=== PATIENT | female | born 1975 | race Caucasian/White ===

== ENCOUNTER 2018-11-27 06:30 | Inpatient (IN) ==
[2018-11-19 13:05] LABS: Appearance,Urine HAZY; Bacteria,Urine MOD /hpf (0); Bilirubin,Urine NEG (NEG); Color,Urine YELLOW; Glucose,Urine (UA) NEGATIVE (NEG); Leukocyte Esterase,Urine NEG /uL (NEG); Mucus,Urine FEW /hpf (0); Protein,Urine NEG (NEG); Specific Gravity,Urine 1.011 (1.000-1.035); Urine Blood NEG mg/dL (<0.03); Urine RBC 0 /hpf (0-1); Urine Squamous Epithelial Cell 4 /hpf (0-4); Urine WBC 8 /hpf (0-4); Urobilinogen,Urine NEG (NEG)
[2018-11-19 14:08] LABS: Blood Urea Nitrogen 14 mg/dl (6-20)
[2018-11-19 14:23] LABS: Basophils # (Auto) 0.1 K/mcL (0.0-0.3); Basophils % (Auto) 0.9 % (0.0-2.0); Eosinophils # (Auto) 0.1 K/mcL (0.0-0.7); Granulocytes % (Auto) 51.4 % (38.0-78.0); Lymphocytes # (Auto) 2.1 K/mcL (1.5-4.8); Lymphocytes % (Auto) 34.5 % (15.5-49.0); Mean Cell Volume 96.6 fL (80.0-100.0); Mean Corpuscular HGB Conc 33.2 g/dL (31.0-36.0); Monocytes # (Auto) 0.7 K/mcL (0.1-0.9); Monocytes % (Auto) 12.2 % (1.0-12.0); Platelet Count 329 K/mcL (140-440); RBC 4.06 M/mcL (4.00-5.20); Red Cell Distribution Width 13.4 % (11.5-14.5)
[2018-11-19 14:31] LABS: Hemoglobin A1C 5.5 % HGB (4.0-6.0)
[~2018-11-27 06:30] MED LIST: 0.9 % SODIUM CHLORIDE 9 ML, KETOROLAC 30 MG, ROPIVACAINE HCL/PF 49.5 ML, EPINEPHrine 0.... IJ SCH; CELECOXIB 200 MG CAPSULE PO SCH; PREGABALIN 75 MG CAPSULE PO SCH
[2018-11-27] MEDS ORDERED: ceFAZolin 2 GM in DEXTROSE 5% IN WATER 50 ML IV SCH (07:00)
[2018-11-27 08:14] LABS: Appearance,Urine CLEAR; Bilirubin,Urine NEG (NEG); Color,Urine STRAW; Glucose,Urine (UA) NEGATIVE (NEG); Leukocyte Esterase,Urine NEG /uL (NEG); Protein,Urine NEG (NEG); Specific Gravity,Urine 1.014 (1.000-1.035); Urine Blood NEG mg/dL (<0.03); Urobilinogen,Urine NEG (NEG)
[2018-11-27] MEDS ORDERED: GLYCOPYRROLATE 0.2 MG/ML VIAL IV ONE (10:00)
[2018-11-27] MEDS ORDERED: TRANEXAMIC ACID 1,000 MG/10 ML VIAL IV ONE (10:00)
[2018-11-27] MEDS ORDERED: MIDAZOLAM 5 MG/5 ML VIAL IV ONE (10:00)
[2018-11-27] MEDS ORDERED: ROPIVACAINE HCL/PF 30 ML VIAL IJ ONE (10:00)
[2018-11-27] MEDS ORDERED: ONDANSETRON 4 MG/2 ML VIAL IV ONE (10:00)
[2018-11-27] MEDS ORDERED: KETAMINE 100 MG/ML ML IV ONE (10:00)
[2018-11-27] MEDS ORDERED: LIDOCAINE HCL/PF 100 MG/5 ML SYRINGE IV ONE (10:00)
[2018-11-27] MEDS ORDERED: PHENYLEPHRINE 10 MG/ML VIAL IV ONE (10:00)
[2018-11-27] MEDS ORDERED: PROPOFOL 200 MG/20 ML VIAL IV ONE (10:00)
[2018-11-27] MEDS ORDERED: GENTAMICIN SULFATE 800 MG/20 ML VIAL IR ONE (10:17)
[2018-11-27] MEDS ORDERED: ONDANSETRON 4 MG/2 ML VIAL IV PRN (11:37)
[2018-11-27] MEDS ORDERED: ACETAMINOPHEN 325 MG TABLET PO PRN (11:37)
[2018-11-27] MEDS ORDERED: BISACODYL 10 MG SUPP.RECT PR PRN (11:37)
[2018-11-27] MEDS ORDERED: BENZOCAINE/MENTHOL 1 LOZENGE PO PRN (11:37)
[2018-11-27] MEDS ORDERED: MAGNESIUM HYDROXIDE 30 ML ORAL.SUSP PO PRN (11:37)
[2018-11-27] MEDS ORDERED: HYDROcodone/APAP 10/325MG TABLET PO PRN (11:37)
[2018-11-27] MEDS ORDERED: TRANEXAMIC ACID 1,000 MG/10 ML VIAL IV SCH (11:37)
[2018-11-27] MEDS ORDERED: DIAZEPAM 5 MG TABLET PO PRN (11:42)
[2018-11-27] MEDS ORDERED: IPRATROPIUM/ALBUTEROL 3 ML AMPUL.NEB NEB PRN (11:44)
[2018-11-27] MEDS ORDERED: MEPERIDINE 25 MG/ML SYRINGE IV PRN (11:44)
[2018-11-27] MEDS ORDERED: METHOCARBAMOL 1,000 MG/10 ML VIAL IV PRN (11:44)
--- NOTE | 2018-11-27 11:45 | Brief Operative Note ---
Date of procedure: 11/27/18 Pre-op diagnosis: DJD right knee Post-op diagnosis: same Procedure: R TKR Grafts/Implants: Yes (3, ii mm imnsert, 29 mm anatomic poly) Anesthesia: GETA Complications: none Surgeon: Randy Pozo Hem Marker: Uri Khan Estimated blood loss (cc): 50 Tourniquet Time (Minutes): 55 Specimens Removed/Pathology: none sent Condition: stable Disposition: PACU
[2018-11-27] MEDS ORDERED: HYDROmorphone 2 MG/ML VIAL IV PRN (12:18)
[2018-11-27] MEDS: METHOCARBAMOL 1,000 MG/10 ML VIAL IV PRN ×2 (12:21→18:04)
--- NOTE | 2018-11-27 12:36 | XRay Report ---
CLINICAL INFORMATION: Postsurgical follow-up TECHNIQUE: AP, crosstable lateral, patellar views COMPARISON: Preoperative right knee dated 02/18/2013 FINDINGS: Status post right total knee arthroplasty. Femoral and tibial components are in anatomic positions. There is postsurgical soft tissue and intra-articular gas. IMPRESSION: Status post right total knee arthroplasty Interpreted and Authenticated by: Jake Schmidt 11/27/18
[2018-11-27] MEDS ORDERED: HYDROmorphone 2 MG/ML VIAL ONE (12:39)
[2018-11-27] MEDS: buPROPion 150 MG TAB.SR.12H PO SCH (13:16)
[2018-11-27] MEDS: FLUoxetine HCL 20 MG CAPSULE PO SCH (13:24)
[2018-11-27] MEDS: risperiDONE 1 MG TABLET PO SCH (13:24)
[2018-11-27] MEDS: 0.9 % SODIUM CHLORIDE 1,000 ML IV SCH (13:24)
[2018-11-27] MEDS: 0.9 % SODIUM CHLORIDE 10 ML SYRINGE IV SCH ×2 (13:36→20:10)
[2018-11-27] MEDS: ceFAZolin 1 GM VIAL IV SCH (17:48)
[2018-11-27] MEDS: oxyCODONE/APAP 10/325MG TABLET PO PRN ×3 (18:05→23:22)
[2018-11-27] MEDS: SENNOSIDES 1 TABLET PO SCH (20:06)
[2018-11-27] MEDS: DOCUSATE SODIUM 100 MG CAPSULE PO SCH (20:07)
[2018-11-27] MEDS: ASPIRIN 81 MG TAB.CHEW PO SCH (20:07)
[2018-11-27] MEDS ORDERED: diphenhydrAMINE 25 MG CAPSULE PO PRN (22:21)
[2018-11-27] MEDS: BUTALB/ACETAMINOPHEN/CAFFEINE 1 TABLET PO PRN (22:30)
[2018-11-27] MEDS ORDERED: diphenhydrAMINE 50 MG/ML VIAL ONE (22:31)
[2018-11-27] MEDS: tiZANidine 4 MG TABLET PO SCH (23:22)
[2018-11-28] MEDS: oxyCODONE/APAP 10/325MG TABLET PO PRN ×6 (00:26→22:07)
[2018-11-28] MEDS: ceFAZolin 1 GM VIAL IV SCH (03:07)
[2018-11-28] MEDS: 0.9 % SODIUM CHLORIDE 1,000 ML IV SCH ×2 (03:08→15:26)
[2018-11-28] MEDS: 0.9 % SODIUM CHLORIDE 10 ML SYRINGE IV SCH ×3 (05:09→22:07)
--- NOTE | 2018-11-28 06:15 | Orthopedic Progress Note ---
Subjective Patient information: Note initiated : 11/28/18 at 6:13 am Service Date, if different from initiated Date: [] Patient: Shirlene Pradhan 43 y/o F admitted on 11/27/18 for Right Robotic Total Knee Arthroplasty. Chief Complaint: [] Principal diagnosis: pod 1 Objective Vital signs: Vital Signs Temp Pulse Resp BP BP Pulse Ox 11/28/18 03:41 99.4 F H 93 H 16 90/64 95 11/28/18 00:22 106/60 11/27/18 23:20 98.2 F 89 16 104/50 94 11/27/18 21:30 98/51 11/27/18 20:45 104/58 11/27/18 20:05 92/60 11/27/18 19:57 98.3 F 85 16 97/47 93 11/27/18 18:00 92 H 99/60 97 11/27/18 17:00 108 H 16 98/62 97 11/27/18 15:30 109 H 16 89/57 96 11/27/18 15:00 95 H 16 92/61 96 11/27/18 14:16 89/60 11/27/18 13:46 93 H 14 90/57 97 11/27/18 13:31 87 16 102/44 96 11/27/18 13:17 109 H 16 90/56 94 11/27/18 13:01 84 14 110/67 96 11/27/18 12:46 87 16 108/66 94 11/27/18 12:35 98.1 F 78 14 104/58 98 11/27/18 12:20 98.3 F 73 15 113/69 100 11/27/18 12:05 98.2 F 80 18 101/54 100 11/27/18 12:00 74 10 L 109/93 100 11/27/18 11:55 74 8 L 93/64 100 11/27/18 11:50 98.2 F 73 12 107/62 100 Intake and Output 11/27/18 11/28/18 11/28/18 21:59 05:59 13:59 Intake Total 1320 780 Output Total 1200 1150 Balance 120 -370 Intake: Oral 1320 780 Output: Urine Catheter Amount 1200 1000 Straight 1000 Void Amount 150 Other: Meal Dinner HS snack- egg salad Percent of Meal Consumed 100% 100% Feeding Ability Independent Independent Urine Appearance Sediment Straight Clear Clear Urine Color Bright Yellow Straight Bright Yellow Bright Yellow Weight 208 lb Intake & Output: Intake & Output 11/27/18 11/28/18 11/28/18 21:59 05:59 13:59 Intake Total 1320 780 Output Total 1200 1150 Balance 120 -370 Weight 208 lb Intake: Oral 1320 780 Output: Urine Catheter Amount 1200 1000 Straight 1000 Void Amount 150 Other: Meal Dinner HS snack- egg salad Percent of Meal Consumed 100% 100% Feeding Ability Independent Independent Urine Appearance Sediment Straight Clear Clear Urine Color Bright Yellow Straight Bright Yellow Bright Yellow Incision clean and dry: Yes Dressing: Yes clean, Yes dry, Yes intact Weight bearing status: full Extremities exam IM: Yes Foot pink and warm, Yes neurovascular intact - Diagnostic Results Knee x-ray: image reviewed (excellent alignment and fit, no complicat'ns) - Labs CBC & BMP: 11/28/18 04:35 11/19/18 11:36 Labs: Orthopedic Labs 11/28/18 04:35 PT Pending INR Pending 11/28/18 11/19/18 04:35 11:36 Hgb 10.2 L 13.0 Hct 30.7 L 39.2 Assessment and Plan (1) Chronic knee pain after total replacement of right knee joint Status: Acute - Narrative A/P Narrative: doing well except for anxiety and ROJO Will consult hospitalists if ROJO don't resolve soon.
[2018-11-28] MEDS ORDERED: SUMAtriptan SUCCINATE 50 MG TABLET PO PRN (07:00)
[2018-11-28] MEDS: BUTALB/ACETAMINOPHEN/CAFFEINE 1 TABLET PO PRN ×3 (07:29→19:21)
[2018-11-28] MEDS: buPROPion 150 MG TAB.SR.12H PO SCH ×2 (08:31→11:34)
[2018-11-28] MEDS: ASPIRIN 81 MG TAB.CHEW PO SCH ×2 (08:31→20:50)
[2018-11-28] MEDS: DOCUSATE SODIUM 100 MG CAPSULE PO SCH ×2 (08:32→20:50)
--- NOTE | 2018-11-28 13:14 | Operative Note ---
DATE OF OPERATION: 11/27/2018 PREOPERATIVE DIAGNOSIS: Degenerative joint disease of the right knee. POSTOPERATIVE DIAGNOSIS: Degenerative joint disease of the right knee. OPERATION: [place]-assisted right total knee replacement. SURGEON: Randy Pozo M.D. INSTRUCTIONAL CONSULTANT: Uri Khan PA-C. ANESTHESIA: General. TOURNIQUET TIME: 55 minutes. ESTIMATED BLOOD LOSS: 75 mL. SUMMARY OF PROCEDURE: General anesthesia was attained. The portals were made for the femoral and tibial arrays. Two pins were placed in each of the two bones. The arrays were placed on the bones. A midline incision was made from the quadriceps to the tibial tubercle. This was taken down sharply down through the subcutaneous fat. I used a midvastus approach. The vastus medialis was split and then about an inch of the quadriceps tendon and the medial retinaculum. The split was taken down to the menisci. A formal release was not done of the medial collateral ligament. The anterior menisci were removed. The fat pad was debrided. The ACL was released. The synovium was elevated off of the anterior aspect of the femur. We then confirmed anatomic landmarks by doing a registration, as well as rotating the leg to locate the hip center. The two checkpoints were placed, one in the femur and one in the tibia. We then brought in the robotic arm. The proximal cut was made of the tibia, followed by the posterior femur, posterior chamfer, anterior femur, anterior chamfer, and then finally the posterior cut. All the bone was removed. Trials were done and the best fit for both the femur and for the tibia was size 3. We then confirmed excellent stability using the robot with an 11 mm insert. We were able to get a full range of motion as well. The patella was partially everted. A measured resection was done of the patella from 19 mm down to 12 mm. The bed for a 29 patellar component was prepared by drilling the three holes after resecting the 7 mm. A trial was done of the patella as well and showed a stable patella on a no-touch test. The tibia's rotation was confirmed on the [place]. The femur was rotated to about 4.5 mm. Bone surfaces were then irrigated. The components were cemented in. The cement was cured with the knee at full extension. Excess cement was removed. I then used absorbable barbed Stratafix suture to close the quadriceps and medial retinaculum. This was two Stratafix sutures. The subcutaneous tissue was closed with buried 2-0 Monocryl. The skin was closed with Dura-Mohan. A sterile compressive dressing was applied. The sponge and needle count was correct. The patient tolerated the procedure well and was taken to the recovery room in stable condition. TJF:fletcher Job ID: [id number] Doc ID: [id number] Randy Pozo MD
[2018-11-28] MEDS: risperiDONE 1 MG TABLET PO SCH (13:20)
[2018-11-28] MEDS: FLUoxetine HCL 20 MG CAPSULE PO SCH (13:20)
[2018-11-28] MEDS: SENNOSIDES 1 TABLET PO SCH (20:50)
[2018-11-28] MEDS: tiZANidine 4 MG TABLET PO SCH (20:52)
[2018-11-28] MEDS: METHOCARBAMOL 1,000 MG/10 ML VIAL IV PRN (22:07)
[2018-11-29] MEDS: oxyCODONE/APAP 10/325MG TABLET PO PRN ×3 (02:12→11:42)
[2018-11-29] MEDS: BUTALB/ACETAMINOPHEN/CAFFEINE 1 TABLET PO PRN ×2 (03:51→07:31)
[2018-11-29] MEDS: 0.9 % SODIUM CHLORIDE 10 ML SYRINGE IV SCH (05:10)
[2018-11-29] MEDS: DOCUSATE SODIUM 100 MG CAPSULE PO SCH (08:15)
[2018-11-29] MEDS: buPROPion 150 MG TAB.SR.12H PO SCH (08:15)
[2018-11-29] MEDS: ASPIRIN 81 MG TAB.CHEW PO SCH (08:15)
[2018-11-29] MEDS ORDERED: HYDROmorphone 2 MG/ML VIAL IV ONE (09:51)
--- NOTE | 2018-11-29 09:58 | Discharge Summary ---
Ortho Discharge - TKA - Patient Instructions Diet: Regular Diet Activity: activity as tolerated Total Knee Protocol: For Total Knee: Start ROM SEBASTIAN with stationary bike or rocking chair. Work on gaining full extension of knee. Posterior dislocation precautions provided. Hip abductor strengthening and gait training instructions provided. Apply Cryocuff as instructed. Dressing Care: May shower in 2 days Patient Education: Total Knee Replacement (DC) - Problem Maintenance (1) Chronic knee pain after total replacement of right knee joint Status: Acute - Follow Up Plan Follow Up Appointments: Randy Pozo MD [Physician] - 12/08/18 Disposition: Home, Self-Care Prognosis: Good Rehab Potential: Good I certify that the patient requires SNF services: Yes (In home PT) Overall status at discharge: patient is progressing back to baseline
--- NOTE | 2018-11-29 10:00 | Discharge Summary ---
Providers - Providers Patient information: Note initiated : 11/29/18 at 9:58 am Service Date, if different from initiated Date: [] Patient: Shirlene Pradhan 43 y/o F admitted on 11/27/18 for Right Robotic Total Knee Arthroplasty. Chief Complaint: [] Date of admission: 11/27/18 Discharge date: 11/29/18 Attending physician: Randy Pozo Hospitalization Hospital course: uncomplicated right TKR. Had migraines after surgery , slow to progress, but walking and transferring safely at time of discharge Reason for admission: r knee DJD Procedures: R TKR Complications: none Exam - Exam Clean and dry: Yes Weight bearing status: full Ortho Discharge - TKA - Patient Instructions Diet: Regular Diet Activity: activity as tolerated Total Knee Protocol: For Total Knee: Start ROM SEBASTIAN with stationary bike or rocking chair. Work on gaining full extension of knee. Posterior dislocation precautions provided. Hip abductor strengthening and gait training instructions provided. Apply Cryocuff as instructed. Patient Education: Total Knee Replacement (DC) - Problem Maintenance (1) Chronic knee pain after total replacement of right knee joint Status: Acute - Follow Up Plan Follow Up Appointments: Randy Pozo MD [Physician] - 12/08/18 Disposition: Home, Self-Care Prognosis: Good Rehab Potential: Good I certify that the patient requires SNF services: Yes (In home PT) Overall status at discharge: patient is not back to baseline - Orders For Discharge Prescriptions: Aspirin 81 mg PO BID #60 tab.chew oxyCODONE/APAP [Percocet 10-325Mg] 1 - 2 tab PO Q6HP PRN #60 tab PRN Reason: Pain Additional Discharge Orders: Physical Therapy at Discharge - TKA Location: None Selected Walker Location: None Selected Pending Studies Resuscitation Status Full Code Diet Regular Diet Start Yun November 27 1524 Acetaminophen (Tylenol) 650 mg PO Q6HP PRN PRN Reason: PAIN/FEVER > 101 Last Admin: 11/27/18 15:55 Dose: 650 mg Documented by: LSTRATTON Acetaminophen/Butalbital/Caffeine (Fioricet) 1 tab PO Q4HP PRN PRN Reason: Headache Last Admin: 11/29/18 07:31 Dose: 1 tab Documented by: [email or web address] Admin: 11/29/18 03:51 Dose: 1 tab Documented by: Admin: 11/28/18 19:21 Dose: 1 tab Documented by: Admin: 11/28/18 11:35 Dose: 1 tab Documented by: [email or web address] Admin: 11/28/18 07:29 Dose: 1 tab Documented by: [email or web address] Admin: 11/27/18 22:30 Dose: 1 tab Documented by: LOVE Aspirin (Aspirin) 81 mg PO BID [facility] Last Admin: 11/29/18 08:15 Dose: 81 mg Documented by: [email or web address] Admin: 11/28/18 20:50 Dose: 81 mg Documented by: Admin: 11/28/18 08:31 Dose: 81 mg Documented by: CARINA Cosigned by: RADAMES Admin: 11/27/18 20:07 Dose: 81 mg Documented by: LOVE Bupropion HCl (Wellbutrin Sr) 150 mg PO BID@08,1200 [facility] Last Admin: 11/29/18 08:15 Dose: 150 mg Documented by: [email or web address] Admin: 11/28/18 11:34 Dose: 150 mg Documented by: [email or web address] Admin: 11/28/18 08:31 Dose: 150 mg Documented by: CARINA Cosigned by: RADAMES Admin: 11/27/18 13:16 Dose: 150 mg Documented by: JUANRAJORGE Diazepam (Valium) 5 mg PO DAILYP PRN PRN Reason: MUSCLE SPASMS Last Admin: 11/27/18 13:24 Dose: 5 mg Documented by: JUANRABARBRAON Diphenhydramine HCl (Benadryl) 25 mg PO Q4HP PRN PRN Reason: Allergic Symptoms Last Admin: 11/29/18 00:51 Dose: 25 mg Documented by: SHELBY Docusate Sodium (Colace) 100 mg PO BID [facility] Last Admin: 11/29/18 08:15 Dose: 100 mg Documented by: [email or web address] Admin: 11/28/18 20:50 Dose: 100 mg Documented by: Admin: 11/28/18 08:32 Dose: 100 mg Documented by: CARINA Cosigned by: RADAMES Admin: 11/27/18 20:07 Dose: 100 mg Documented by: LOVE Fluoxetine HCl (Prozac) 40 mg PO DAILY@1400 [facility] Last Admin: 11/28/18 13:20 Dose: 40 mg Documented by: Admin: 11/27/18 13:24 Dose: 40 mg Documented by: CHATO Methocarbamol (Robaxin) 750 mg IV Q6HP PRN PRN Reason: Muscle Spasm Last Admin: 11/28/18 22:07 Dose: 750 mg Documented by: Admin: 11/27/18 18:04 Dose: 750 mg Documented by: Admin: 11/27/18 12:21 Dose: 750 mg Documented by: PENNY Morphine Sulfate (Morphine) 0 mg IV Q2HP PRN PRN Reason: PAIN LEVEL > 6 Last Admin: 11/29/18 00:44 Dose: 2 mg Documented by: Admin: 11/28/18 13:53 Dose: 2 mg Documented by: Admin: 11/28/18 00:25 Dose: 2 mg Documented by: Admin: 11/27/18 21:32 Dose: 2 mg Documented by: Admin: 11/27/18 20:48 Dose: 2 mg Documented by: Admin: 11/27/18 13:35 Dose: 2 mg Documented by: CHATO Ondansetron HCl (Zofran) 4 mg IV Q4HP PRN PRN Reason: Nausea And Vomiting Last Admin: 11/29/18 07:06 Dose: 4 mg Documented by: [email or web address] Oxycodone/Acetaminophen (Percocet 10-325mg) 0 tab PO Q6HP PRN PRN Reason: Pain Last Admin: 11/29/18 07:16 Dose: 1 tab Documented by: [email or web address] Admin: 11/29/18 02:12 Dose: 1 tab Documented by: Admin: 11/28/18 22:07 Dose: 1 tab Documented by: Admin: 11/28/18 20:50 Dose: 1 tab Documented by: Admin: 11/28/18 16:54 Dose: 2 tab Documented by: [email or web address] Admin: 11/28/18 12:35 Dose: 1 tab Documented by: [email or web address] Admin: 11/28/18 09:21 Dose: 1 tab Documented by: [email or web address] Admin: 11/28/18 00:26 Dose: 1 tab Documented by: Admin: 11/27/18 23:22 Dose: 1 tab Documented by: Admin: 11/27/18 20:07 Dose: 1 tab Documented by: Admin: 11/27/18 18:05 Dose: 1 tab Documented by: CHATO Risperidone (Risperdal) 1 mg PO DAILY@1400 [facility] Last Admin: 11/28/18 13:20 Dose: 1 mg Documented by: [facility] Admin: 11/27/18 13:24 Dose: 1 mg Documented by: CHATO Senna (Senokot) 2 tab PO [facility] Last Admin: 11/28/18 20:50 Dose: 2 tab Documented by: Admin: 11/27/18 20:06 Dose: 2 tab Documented by: LOVE Sodium Chloride (Saline Flush) 10 ml IV Q8 [facility] Last Admin: 11/29/18 05:10 Dose: Not Given Documented by: Admin: 11/28/18 22:07 Dose: 10 ml Documented by: Admin: 11/28/18 14:07 Dose: Not Given Documented by: [email or web address] Admin: 11/28/18 05:09 Dose: Not Given Documented by: Admin: 11/27/18 20:10 Dose: Not Given Documented by: Admin: 11/27/18 13:36 Dose: 10 ml Documented by: CHATO Sumatriptan Succinate (Imitrex) 25 mg PO PRN PRN PRN Reason: MIGRAINE HEADACHE Last Admin: 11/28/18 09:21 Dose: 25 mg Documented by: [email or web address] Tizanidine HCl (Zanaflex) 4 mg PO [facility] Last Admin: 11/28/18 20:52 Dose: Not Given Documented by: Admin: 11/27/18 23:22 Dose: 4 mg Documented by: KIMBERLY Shift Summary 11/29/18 00:18 Shift Summary by Shirlene Diaz A&Zander. BP can be sensitive to narcotics, manual blood pressure is best. Runs in the low 90's-low 100's, asymptomatic, other VS stable on RA. Held HS zanaflex r/t drop in BP previous night. Up with SBA and FWW. Voids frequently. Medicated with 1 tab of Percocet x2 so far and 750mg of Robaxin IV. Dressing to right leg, CDI. Hx of some mental issues and CP, can be slow to understand and remember things but she is appropriate and calls for her needs, cooperative with cares. Should d/c with HH to her fathers house in AM. Initialized on 11/29/18 00:18 - END OF NOTE
== END 2018-11-29 13:08 | disposition home or self-care (01) | DRG 470 ==
LOC: MEDSUR 06:30
PROVIDERS: ADMIT Orthopaedic Surgery Foot and Ankle Surgery; ATTEND Orthopaedic Surgery Foot and Ankle Surgery

== ENCOUNTER 2019-04-09 04:35 | Inpatient (IN) ==
[2019-04-03 14:14] LABS: Appearance,Urine CLEAR; Bilirubin,Urine NEG (NEG); Color,Urine YELLOW; Culture Indicated,Urine NO; Glucose,Urine (UA) NEGATIVE (NEG); Ketones,Urine NEG (NEG); Leukocyte Esterase,Urine NEG /uL (NEG); Nitrate,Urine NEG (NEG); Protein,Urine NEG (NEG); Specific Gravity,Urine 1.004 (1.000-1.035); Urine Blood NEG mg/dL (<0.03); Urobilinogen,Urine NEG (NEG)
[2019-04-03 16:00] LABS: Blood Urea Nitrogen 21 mg/dl (6-20); Calcium 9.8 mg/dl (8.6-10.4); Carbon Dioxide 24 mmol/L (22-30); Chloride 98 mmol/L (96-108); Glomerular Filtration Rate 78; Glucose 76 mg/dL (70-105)
[2019-04-06 13:47] LABS: Basophils # (Auto) 0 K/mcL (0.0-0.3); Basophils % (Auto) 0.4 % (0.0-2.0); Eosinophils # (Auto) 0 K/mcL (0.0-0.7); Eosinophils % (Auto) 0.7 % (0.0-7.0); Granulocytes % (Auto) 42.9 % (38.0-78.0); Lymphocytes # (Auto) 2.7 K/mcL (1.5-4.8); Lymphocytes % (Auto) 45.4 % (15.5-49.0); Mean Cell Volume 93.8 fL (80.0-100.0); Mean Corpuscular HGB Conc 33.4 g/dL (31.0-36.0); Mean Platelet Volume 8.7 fL (7.4-10.4); Monocytes # (Auto) 0.6 K/mcL (0.1-0.9); Monocytes % (Auto) 10.6 % (1.0-12.0); Platelet Count 232 K/mcL (140-440); RBC 4.16 M/mcL (4.00-5.20); Red Cell Distribution Width 13.9 % (11.5-14.5); WBC 5.9 K/mcL (4.5-11.0)
[2019-04-09] MEDS ORDERED: IPRATROPIUM/ALBUTEROL 3 ML AMPUL.NEB NEB PRN ×2 (05:00→09:06)
[2019-04-09] MEDS ORDERED: SCOPOLAMINE 1 PATCH PATCH TOPICAL PRN (05:00)
[2019-04-09] MEDS ORDERED: 0.9 % SODIUM CHLORIDE 9 ML, KETOROLAC 30 MG, ROPIVACAINE HCL/PF 49.5 ML, EPINEPHrine 0.... IJ SCH (06:00)
[2019-04-09] MEDS ORDERED: ceFAZolin 2 GM in DEXTROSE 5% IN WATER 50 ML IV SCH (06:00)
[2019-04-09] MEDS ORDERED: PHENYLEPHRINE 10 MG/ML VIAL ONE (07:32)
[2019-04-09] MEDS ORDERED: ONDANSETRON 4 MG/2 ML VIAL ONE (07:32)
[2019-04-09] MEDS ORDERED: MIDAZOLAM 2 MG/2 ML VIAL ONE (07:32)
[2019-04-09] MEDS ORDERED: GLYCOPYRROLATE 0.2 MG/ML VIAL IV ONE (07:32)
[2019-04-09] MEDS ORDERED: PROPOFOL 200 MG/20 ML VIAL IV ONE (07:32)
[2019-04-09] MEDS ORDERED: KETAMINE 10 MG/ML ML ONE (07:32)
[2019-04-09] MEDS ORDERED: LIDOCAINE HCL/PF 100 MG/5 ML SYRINGE IV ONE (07:32)
[2019-04-09] MEDS ORDERED: GENTAMICIN SULFATE 800 MG/20 ML VIAL IR ONE (08:06)
[2019-04-09] MEDS ORDERED: MEPERIDINE 25 MG/ML SYRINGE IV PRN (09:06)
[2019-04-09] MEDS ORDERED: ONDANSETRON 4 MG/2 ML VIAL IV PRN ×2 (09:06→09:35)
[2019-04-09] MEDS ORDERED: HYDROmorphone 2 MG/ML VIAL IV PRN (09:06)
[2019-04-09] MEDS ORDERED: ACETAMINOPHEN 1,000 MG/100 ML BOTTLE IV ONE (09:06)
[2019-04-09] MEDS ORDERED: METHOCARBAMOL 1,000 MG/10 ML VIAL IV PRN (09:06)
[2019-04-09] MEDS ORDERED: LACTATED RINGERS 1,000 ML IV SCH (09:15)
[2019-04-09] MEDS ORDERED: FLEETS ADULT ENEMA PR PRN (09:35)
[2019-04-09] MEDS ORDERED: BISACODYL 10 MG SUPP.RECT PR PRN (09:35)
[2019-04-09] MEDS ORDERED: BENZOCAINE/MENTHOL 1 LOZENGE PO PRN (09:35)
[2019-04-09] MEDS ORDERED: TRANEXAMIC ACID 1,000 MG/10 ML VIAL IV ONE (09:35)
[2019-04-09] MEDS ORDERED: POLYETHYLENE GLYCOL 3350 17 GM PACKET PO PRN (09:35)
[2019-04-09] MEDS ORDERED: MAGNESIUM HYDROXIDE 30 ML ORAL.SUSP PO PRN (09:35)
[2019-04-09] MEDS ORDERED: TEMAZEPAM 15 MG CAPSULE PO PRN (09:35)
[2019-04-09] MEDS ORDERED: ACETAMINOPHEN/DIPHENHYDRAMINE 1 TABLET PO PRN (09:43)
--- NOTE | 2019-04-09 09:48 | Orthopedic Procedure Note ---
Date of procedure: Note initiated : 04/09/19 at 9:45 am Service Date, if different from initiated Date: [] Pre-op diagnosis: djd left Post-op diagnosis: same Procedure: STEPHANI LEFT KNEE REPLACEMENT Grafts/Implants: TRIATHLON KNEE Anesthesia: TYSHAWN Surgeon: Randy Pozo Procurement Clerk: Dany Hand Estimated blood loss: 20 Pathology: none sent Condition: stable Disposition: PACU
--- NOTE | 2019-04-09 10:06 | XRay Report ---
HISTORY: Postop left knee replacement FINDINGS: There is a well-positioned left total knee prosthesis. There is no fracture. There is a tiny soft tissue calcification adjacent to the prosthetic lateral tibial plateau. It measures 2 x 4 mm. IMPRESSION: Well-positioned knee prosthesis Interpreted and Authenticated by: Christian Paredes 04/09/19
[2019-04-09] MEDS: fentaNYL 100 MCG/2 ML VIAL IV PRN ×2 (10:25→10:28)
[2019-04-09] MEDS: DIAZEPAM 5 MG TABLET PO PRN (11:13)
[2019-04-09] MEDS ORDERED: buPROPion 100 MG TAB.SR.12H PO SCH (12:00)
[2019-04-09] MEDS: KETOROLAC 15 MG/ML VIAL IV SCH ×3 (13:23→23:23)
[2019-04-09] MEDS: 0.9 % SODIUM CHLORIDE 1,000 ML IV SCH (13:24)
[2019-04-09] MEDS: risperiDONE 1 MG TABLET PO SCH (14:53)
[2019-04-09] MEDS: buPROPion 100 MG TAB.SR.12H PO SCH (14:53)
[2019-04-09] MEDS: FLUoxetine HCL 20 MG CAPSULE PO SCH (14:53)
[2019-04-09] MEDS: 0.9 % SODIUM CHLORIDE 10 ML SYRINGE IV SCH ×2 (14:53→22:04)
[2019-04-09] MEDS: oxyCODONE HCL 5 MG TABLET PO PRN ×3 (16:01→22:01)
[2019-04-09] MEDS: ceFAZolin 1 GM VIAL IV SCH ×2 (17:41→22:50)
[2019-04-09] MEDS: METHOCARBAMOL 1,000 MG/10 ML VIAL IV PRN (18:56)
[2019-04-09] MEDS: clonazePAM 1 MG TABLET PO PRN (20:38)
[2019-04-09] MEDS: SENNOSIDES 1 TABLET PO SCH (20:39)
[2019-04-09] MEDS: DOCUSATE SODIUM 100 MG CAPSULE PO SCH (20:39)
[2019-04-09] MEDS: ASPIRIN 81 MG TAB.CHEW PO SCH (20:39)
[2019-04-09] MEDS: oxyCODONE 10 MG TAB.ER.12H PO SCH (20:39)
[2019-04-10] MEDS: 0.9 % SODIUM CHLORIDE 1,000 ML IV SCH ×2 (00:52→15:53)
[2019-04-10] MEDS: METHOCARBAMOL 1,000 MG/10 ML VIAL IV PRN ×2 (04:42→19:50)
[2019-04-10] MEDS: oxyCODONE HCL 5 MG TABLET PO PRN ×4 (04:43→22:44)
[2019-04-10 05:43] LABS: Hematocrit 33.8 % (36.0-48.0); Hemoglobin 11.5 g/dL (12.0-15.0)
[2019-04-10 05:58] LABS: Prothrombin Time 13.7 sec (11.9-14.5)
[2019-04-10] MEDS: KETOROLAC 15 MG/ML VIAL IV SCH ×4 (06:01→23:07)
[2019-04-10] MEDS: 0.9 % SODIUM CHLORIDE 10 ML SYRINGE IV SCH ×4 (06:01→20:55)
--- NOTE | 2019-04-10 08:12 | Orthopedic Progress Note ---
Subjective Patient information: Note initiated : 04/10/19 at 8:11 am Service Date, if different from initiated Date: [] Patient: Shirlene Pradhan 43 y/o F admitted on 04/09/19 for Left Total Knee Arthroplasty [place]. Chief Complaint: [] Objective Vital signs: Vital Signs Temp Pulse Resp BP BP Pulse Ox 04/10/19 07:19 99.7 F H 20 107/57 93 04/10/19 03:25 99.5 F H 104 H 16 99/56 94 04/09/19 22:45 98.4 F 91 H 20 98/58 100 04/09/19 18:34 98.4 F 83 16 100/83 95 04/09/19 12:32 68 16 110/69 95 04/09/19 12:02 65 16 112/67 95 04/09/19 11:48 67 18 116/60 04/09/19 11:32 66 16 106/70 94 04/09/19 11:17 67 16 97/66 95 04/09/19 11:04 72 16 92/51 04/09/19 10:41 97.6 F 77 12 122/68 99 04/09/19 10:25 97.3 F 76 15 113/63 99 04/09/19 10:10 73 15 124/60 99 04/09/19 09:55 70 15 112/64 99 04/09/19 09:50 74 12 115/73 100 04/09/19 09:45 77 17 111/66 100 04/09/19 09:40 97.3 F 78 16 111/68 100 04/09/19 08:20 98.4 F 84 16 95/53 98 Intake and Output 04/09/19 04/10/19 04/10/19 21:59 05:59 13:59 Intake Total 1550 1310 385 Output Total 325 1000 Balance 1225 310 385 Intake: IV 860 385 Sodium Chloride 0.9% 1,000 ml @ 860 385 75 mls/hr IV .[id number] [facility] Rx#: [id number] Oral 750 450 GI Tube Flush 800 Output: Void Amount 325 1000 Other: Meal Dinner Percent of Meal Consumed 100% Feeding Ability Independent Urine Appearance Clear Urine Color Bright Yellow Bright Yellow Urine Odor Normal Weight 227 lb Intake & Output: Intake & Output 04/09/19 04/10/19 04/10/19 21:59 05:59 13:59 Intake Total 1550 1310 385 Output Total 325 1000 Balance 1225 310 385 Weight 227 lb Intake: IV 860 385 Sodium Chloride 0.9% 1,000 ml @ 860 385 75 mls/hr IV .[id number] [facility] Rx#: [id number] Oral 750 450 GI Tube Flush 800 Output: Void Amount 325 1000 Other: Meal Dinner Percent of Meal Consumed 100% Feeding Ability Independent Urine Appearance Clear Urine Color Bright Yellow Bright Yellow Urine Odor Normal Incision clean and dry: Yes Weight bearing status: full Extremities exam IM: Yes neurovascular intact - Labs CBC & BMP: 04/10/19 04:10 04/03/19 11:29 Labs: Orthopedic Labs 04/10/19 04:10 PT 13.7 INR 1.0 04/10/19 04/06/19 04/03/19 04:10 10:33 11:29 Hgb 11.5 L 13.0 TNP Hct 33.8 L 39.0 TNP Assessment and Plan - Narrative A/P Narrative: doing well. Continue opiates for pain management add ativan for back spasm.
[2019-04-10] MEDS ORDERED: LORazepam 1 MG TABLET PO PRN (08:17)
--- NOTE | 2019-04-10 08:38 | Operative Note ---
DATE OF OPERATION: 04/09/2019 PREOPERATIVE DIAGNOSIS: Degenerative joint disease of the left knee. POSTOPERATIVE DIAGNOSIS: Degenerative joint disease of the left knee. OPERATION: Left total knee replacement. SURGEON: Randy Pozo MD BRIDGE IRONWORKER: Dany Hand PA-C. This provider's expertise and technical skill were required throughout the case. The MESFIN assisted with preoperative coordination, intraoperative retraction, wound closure, dressing and splint application, as well as postoperative documentation and care coordination. ANESTHESIA: General done by Kaitlin Avalos M.D. TOURNIQUET TIME: 68 minutes. ESTIMATED BLOOD LOSS: 50 mL SUMMARY OF PROCEDURE: General anesthesia was attained. The left knee was prepped and draped. A thigh-level tourniquet was put up. A midline incision was made ___sharply__ ___ ___. This was taken down to the quadriceps and medial retinaculum. The quad tendon was split for about an inch and then _the muscle incision taken obliquely for about an inch to the VMO. The medial retinaculum was split. Longitudinally. The _pes anserinus__ was released. An menisci were resected on the medial side and the lateral side. Two stab incisions were made to the anterior femur and two over the anterior tibia. Blunt dissection was used to get down to the bone. A 4 mm pin was placed into the femur followed by __3.2 mm in the tibia_. The arrays were then placed both on the femur and on the tibia. Anatomic points were then identified as was the hip center. The registry was completed. We then did balancing of flexion and extension gap using the STEPHANI system and we got equal flexion and extension gaps. Proximal tibial cut was made. The remaining cuts were made in the femur as well and the bone was removed. The tibia was sized to a 2 and the femur sized to a 2 as well. The trial was then done of the insert and we got the best combination of full range of motion with excellent stability with a 10 mm insert. This was a posterior cruciate retaining insert. the components were next inserted and cemented using a cement gun, The cement set up with the knee in extension. Excess cement was removed The patella was everted. It measured _21_ mm. We took 8 mm off. measured ___ mm. ___ 8 mm off leaving the patient with 12 to 13 mm. The patella sized to a 29. The no touch test showed a lateral release was not needed. The knee was thoroughly irrigated. A multimodal injection was injected for postoperative analgesia. The components were cemented in. Excess cement was removed. The cement hardened with the knee in full extension. After this, the tourniquet was let down. The quadriceps and medial retinaculum were closed with running sutures of Stratafix. The subcutaneous tissue was closed with interrupted buried 2-0 Monocryl. The skin was closed with Dermabond. A sterile compressive dressing was applied. Prior to closure, all bleeding points had been coagulated after thorough irrigation. TJF:negar Job ID: [id number] Doc ID: [id number] Randy Pozo MD MTDD
[2019-04-10] MEDS: ASPIRIN 81 MG TAB.CHEW PO SCH ×2 (09:19→20:54)
[2019-04-10] MEDS: DOCUSATE SODIUM 100 MG CAPSULE PO SCH ×2 (09:19→20:54)
[2019-04-10] MEDS: buPROPion 100 MG TAB.SR.12H PO SCH ×2 (09:19→14:14)
[2019-04-10] MEDS: oxyCODONE 10 MG TAB.ER.12H PO SCH ×2 (09:20→20:55)
[2019-04-10] MEDS: clonazePAM 1 MG TABLET PO PRN (12:07)
[2019-04-10] MEDS: FLUoxetine HCL 20 MG CAPSULE PO SCH (14:13)
[2019-04-10] MEDS: risperiDONE 1 MG TABLET PO SCH (14:14)
[2019-04-10] MEDS: DIAZEPAM 5 MG TABLET PO PRN (16:26)
[2019-04-10] MEDS: SENNOSIDES 1 TABLET PO SCH (20:54)
[2019-04-11] MEDS: oxyCODONE HCL 5 MG TABLET PO PRN ×2 (04:42→10:59)
[2019-04-11] MEDS: 0.9 % SODIUM CHLORIDE 10 ML SYRINGE IV SCH (04:51)
[2019-04-11] MEDS: KETOROLAC 15 MG/ML VIAL IV SCH (05:41)
[2019-04-11 05:55] LABS: Hematocrit 33.4 % (36.0-48.0); Hemoglobin 11.3 g/dL (12.0-15.0)
[2019-04-11 06:01] LABS: INR 1.1 (0.9-1.1); Prothrombin Time 14.5 sec (11.9-14.5)
--- NOTE | 2019-04-11 08:15 | Orthopedic Progress Note ---
Subjective Patient information: Note initiated : 04/11/19 at 8:13 am Service Date, if different from initiated Date: [] Patient: Shirlene Pradhan 43 y/o F admitted on 04/09/19 for Left Total Knee Arthroplasty [place]. Chief Complaint: left knee pain. Interval history: Pt is POD #2 following left TKA- [place] with Dr. Pozo on 04/09/19. Overall doing well this AM. Pain is managed. Has up ambulating once with assistive device per pt. She has a migraine this AM. Denies fevers/chills, CP, N/V, SOB, numbness/tingling. Pertinent ROS: negative except per HPI. Objective Vital signs: Vital Signs Temp Pulse Resp BP BP Pulse Ox 04/11/19 07:05 98.6 F 20 100/66 91 04/11/19 04:50 98.6 F 106 H 16 102/61 04/10/19 22:50 99.8 F H 104 H 18 101/61 95 04/10/19 19:01 98.8 F 113 H 20 98/52 93 04/10/19 16:17 97.6 F 20 108/69 94 04/10/19 12:34 99.1 F H 20 107/62 93 Intake and Output 04/10/19 04/11/19 04/11/19 21:59 05:59 13:59 Intake Total 300 200 Output Total 600 Balance 300 -400 Intake: Oral 300 200 Output: Void Amount 600 Other: Meal Lunch Percent of Meal Consumed 75% Urine Appearance Clear Urine Color Bright Yellow Intake & Output: Intake & Output 04/10/19 04/11/19 04/11/19 21:59 05:59 13:59 Intake Total 300 200 Output Total 600 Balance 300 -400 Intake: Oral 300 200 Output: Void Amount 600 Other: Meal Lunch Percent of Meal Consumed 75% Urine Appearance Clear Urine Color Bright Yellow Incision: Yes clean and dry Dressing: Yes clean, Yes dry, Yes intact Weight bearing status: as tolerated Neurological exam IM: Yes alert, Yes oriented X3, Yes neurovascular intact Extremities exam IM: No calf tenderness, Yes normal capillary refill, Yes normal inspection, No Malachi's sign, Yes Foot pink and warm, Yes neurovascular intact - Labs CBC & BMP: 04/11/19 04:45 04/03/19 11:29 Labs: Orthopedic Labs 04/11/19 04/10/19 04:45 04:10 PT 14.5 13.7 INR 1.1 1.0 04/11/19 04/10/19 04/06/19 04:45 04:10 10:33 Hgb 11.3 L 11.5 L 13.0 Hct 33.4 L 33.8 L 39.0 04/03/19 11:29 Hgb TNP Hct TNP Assessment and Plan (1) S/P total knee arthroplasty Status: Acute - Narrative A/P Narrative: Pt is POD #2 following Right TKA-[place] with Dr. Pozo on 04/09/19. Overall doing well this AM. Will plan for Discharge today. Continue pain management and DVT prophylaxis. Continue PT.
--- NOTE | 2019-04-11 08:18 | Discharge Summary ---
Providers - Providers Patient information: Note initiated : 04/11/19 at 8:16 am Service Date, if different from initiated Date: [] Patient: Shirlene Pradhan 43 y/o F admitted on 04/09/19 for Left Total Knee Arthroplasty [place]. Chief Complaint: left knee pain. Date of admission: 04/09/19 Discharge date: 04/11/19 Hospitalization Hospital Course: Pt is POD #2 following left TKA with [place] on 04/09/19. Overall doing well this AM. Denies fevers/chills, CP, N/V, SOB, numbness/tingling. Pt's vitals remain stable. Has a migraine this AM. She has ambulated with the walker. Hospital course otherwise unremarkable. Discharge diagnosis: s/p left total knee arthroplasty. Exam - Exam Incision healing: Yes Incision draining: No Clean and dry: Yes Weight bearing status: as tolerated Ortho Discharge - TKA - Patient Instructions Diet: Regular Diet Activity: activity as tolerated, ambulate with assistive device, weight bearing as tolerated Total Knee Protocol: For Total Knee: Start ROM SEBASTIAN with stationary bike or rocking chair. Work on gaining full extension of knee. Apply Cryocuff as instructed. Dressing Care: Other (may shower with dermabond in place.) Additional Dressing Instructions: keep incision clean and dry. - Problem Maintenance (1) S/P total knee arthroplasty Status: Acute - Follow Up Plan Follow Up Appointments: Dany Hand PA-C [Physician [employer]] - 04/22/19 11:20 am Disposition: Home, Self-Care Prognosis: Good Rehab Potential: Good Overall status at discharge: patient is progressing back to baseline - Orders For Discharge Prescriptions: Docusate Sodium [Colace] 100 mg PO BID #60 cap Transmission Status: Pending to [facility] #[id number] Pending Studies Resuscitation Status Full Code Diet Regular Diet Start SatApr 09 1339 Aspirin (Aspirin) 81 mg PO BID [facility] Last Admin: 04/10/19 20:54 Dose: 81 mg Documented by: Admin: 04/10/19 09:19 Dose: 81 mg Documented by: Admin: 04/09/19 20:39 Dose: 81 mg Documented by: SHELBY Bupropion HCl (Wellbutrin Sr) 200 mg PO BID@0800,1430 [facility] Last Admin: 04/10/19 14:14 Dose: 200 mg Documented by: Admin: 04/10/19 09:19 Dose: 200 mg Documented by: Admin: 04/09/19 14:53 Dose: 200 mg Documented by: [email or web address] Clonazepam (Klonopin) 2 mg PO DAILYP PRN PRN Reason: MUSCLE RELAXANT Last Admin: 04/10/19 12:07 Dose: 2 mg Documented by: Admin: 04/09/19 20:38 Dose: 2 mg Documented by: SHELBY Diazepam (Valium) 5 mg PO DAILYP PRN PRN Reason: MUSCLE SPASMS Last Admin: 04/10/19 16:26 Dose: 5 mg Documented by: Admin: 04/09/19 11:13 Dose: 5 mg Documented by: GARY Docusate Sodium (Colace) 100 mg PO BID [facility] Last Admin: 04/10/19 20:54 Dose: 100 mg Documented by: Admin: 04/10/19 09:19 Dose: 100 mg Documented by: Admin: 04/09/19 20:39 Dose: 100 mg Documented by: SHELBY Fluoxetine HCl (Prozac) 40 mg PO DAILY@1430 [facility] Last Admin: 04/10/19 14:13 Dose: 40 mg Documented by: Admin: 04/09/19 14:53 Dose: 40 mg Documented by: [email or web address] Methocarbamol (Robaxin) 750 mg IV Q6HP PRN PRN Reason: Muscle Spasm Last Admin: 04/10/19 19:50 Dose: 750 mg Documented by: Admin: 04/10/19 04:42 Dose: 750 mg Documented by: Admin: 04/09/19 18:56 Dose: 750 mg Documented by: SHELBY Oxycodone HCl (Roxicodone) 0 mg PO Q4HP PRN PRN Reason: PAIN LEVEL 3-6 Last Admin: 04/11/19 04:42 Dose: 10 mg Documented by: Admin: 04/10/19 22:44 Dose: 5 mg Documented by: Admin: 04/10/19 19:50 Dose: 5 mg Documented by: Admin: 04/10/19 15:35 Dose: 10 mg Documented by: Admin: 04/10/19 04:43 Dose: 10 mg Documented by: Admin: 04/09/19 22:01 Dose: 5 mg Documented by: Admin: 04/09/19 20:38 Dose: 5 mg Documented by: Admin: 04/09/19 16:01 Dose: 10 mg Documented by: ELDER Risperidone (Risperdal) 1 mg PO DAILY@1430 [facility] Last Admin: 04/10/19 14:14 Dose: 1 mg Documented by: [email or web address] Admin: 04/09/19 14:53 Dose: 1 mg Documented by: [email or web address] Senna (Senokot) 2 tab PO HS [facility] Last Admin: 04/10/19 20:54 Dose: 2 tab Documented by: Admin: 04/09/19 20:39 Dose: 2 tab Documented by: SHELBY Sodium Chloride (Saline Flush) 10 ml IV Q8 [facility] Last Admin: 04/11/19 04:51 Dose: 10 ml Documented by: Admin: 04/10/19 20:55 Dose: 10 ml Documented by: Admin: 04/10/19 15:30 Dose: 10 ml Documented by: Admin: 04/10/19 11:44 Dose: 10 ml Documented by: Admin: 04/10/19 06:01 Dose: 10 ml Documented by: Admin: 04/09/19 22:04 Dose: Not Given Documented by: Admin: 04/09/19 14:53 Dose: Not Given Documented by: [email or web address] Temazepam (Restoril) 15 mg PO HSP PRN PRN Reason: Insomnia Last Admin: 04/09/19 22:01 Dose: 15 mg Documented by: SHELBY Shift Summary 04/11/19 04:52 Shift Summary by Ciro Magaña Alert and oriented times four. Left total knee done. Dressing to the knee clean, dry and intact. Did CPM 45 degrees for about an hr, cpm removed due to pain. Medicated pain with oxycodone 10mg *2. Gave scheduled oxycontin 10mg and scheduled Toradol. Voids with good amount. Slept most of the night. Cryocuff on and off. Stable vital signs, HR has been ranging in the 100's. Up with assist to the bathroom/bedside commode with a walker. IV to the right AC saline locked. Initialized on 04/11/19 04:52 - END OF NOTE
[2019-04-11] MEDS: DOCUSATE SODIUM 100 MG CAPSULE PO SCH (09:07)
[2019-04-11] MEDS: buPROPion 100 MG TAB.SR.12H PO SCH (09:08)
[2019-04-11] MEDS: ASPIRIN 81 MG TAB.CHEW PO SCH (09:08)
== END 2019-04-11 13:30 | disposition home or self-care (01) | DRG 470 ==
LOC: MEDSUR 04:35
PROVIDERS: ADMIT Orthopaedic Surgery Foot and Ankle Surgery; ATTEND Orthopaedic Surgery Foot and Ankle Surgery

== ENCOUNTER 2022-10-17 18:00 | Observation (INO) ==
[2022-10-17] MEDS ORDERED: LACTATED RINGERS 1,000 ML IV ONE ×2 (19:24→21:35)
[2022-10-17] MEDS ORDERED: PROCHLORPERAZINE 10 MG/2 ML VIAL IV ONE (19:24)
[2022-10-17] MEDS ORDERED: diphenhydrAMINE 50 MG/ML VIAL IV ONE (19:24)
[2022-10-17 19:46] LABS: POC Calcium, Ionized 1.17 (1.16-1.32); POC Potassium 3.8 (3.3-5.1)
[2022-10-17 20:09] LABS: Basophils # (Auto) 0.05 K/mcL (0.00-0.30); Basophils % (Auto) 0.6 % (0.0-2.0); Eosinophils # (Auto) 0.07 K/mcL (0.00-0.70); Eosinophils % (Auto) 0.9 % (0.0-7.0); Hematocrit 41.7 % (34.1-44.9); Hemoglobin 13.2 g/dL (11.2-15.7); Lymphocytes # (Auto) 3.14 K/mcL (1.50-4.80); Lymphocytes % (Auto) 40.6 % (15.5-49.0); Mean Cell Volume 101.2 fL (80.0-100.0); Mean Corpuscular HGB Conc 31.7 g/dL (31.0-36.0); Mean Platelet Volume 10.6 fL (8.8-12.5); Monocytes # (Auto) 0.81 K/mcL (0.10-0.90); Monocytes % (Auto) 10.5 % (1.0-12.0); Neutrophils % (Auto) 46.8 % (38.0-78.0); Platelet Count 248 K/mcL (140-440); RBC 4.12 M/mcL (3.59-5.38); Red Cell Distribution Width 13.2 % (11.5-14.5); WBC 7.7 K/mcL (4.5-11.0)
[2022-10-17 20:33] LABS: ALT/SGPT 31 U/L (<40); AST/SGOT 29 U/L (<32); Albumin 4.2 gm/dL (3.2-5.2); Alkaline Phosphatase 127 U/L (39-117); Bilirubin,Direct < 0.2 mg/dL (0-0.3); Bilirubin,Total 0.6 mg/dL (0.1-1.0); Globulin 3.2 gm/dL (2.2-3.7)
--- NOTE | 2022-10-17 20:33 | Cat Scan Report ---
INDICATION: ROJO, occipital COMPARISON: Previous brain CT scans dated 08/26/2022, 05/01/2020 TECHNIQUE: Axial noncontrast-enhanced images through the brain. Sagittally and coronally reformatted images. FINDINGS: Cerebral hemispheres:Negative. No intra-axial abnormality. No intra-axial hematoma. No localized mass effect.Brain volume is within normal limits for age. Periventricular white matter is negative without significant attenuation abnormality. Brainstem and cerebellum:No intra-axial abnormality Extra-axial:No acute hemorrhage. No subdural or epidural hematoma. No subarachnoid hemorrhage. Basilar cisterns are normal Calvarial:No calvarial fracture. No lytic lesion Temporal bones are negative. No destructive lesions Soft tissue, orbits, sinuses:Orbits and visualized facial soft tissues and paranasal sinuses are negative IMPRESSION: 1. Negative noncontrast enhanced brain CT scan 2. No interval change The exam was performed using radiation dose optimization techniques including, but not limited to, automated exposure control, adjustment of the mA and/or kV according to patient size and use of iterative reconstruction technique. Interpreted and Authenticated by: Jake Schmidt 10/17/22
[2022-10-17] MEDS ORDERED: KETOROLAC 30 MG/ML VIAL IV ONE (20:45)
[2022-10-17 21:25] LABS: HCG,Serum Negative
[2022-10-17 23:41] LABS: Alcohol, Blood < 10.0 mg/dL; Alcohol,Blood < 0.010 gm/dL (<0.010)
[2022-10-18 01:25] LABS: Amphetamine Screen,Urine None detected; Barbiturate Screen,Urine None detected; Benzodiazepines Screen,Urine Suspect positive; Cannabinoid Screen,Urine None detected; Cocaine Screen,Urine None detected; Opiate Screen,Urine None detected; Oxycodone, Urine Screen Suspect Positive; Phencyclidine Screen,Urine None detected
--- NOTE | 2022-10-18 01:38 | Emergency Department Note ---
HPI General Chief complaint: Weakness Stated complaint: migraine, confusion, unable to walk, weakness Time Seen by Provider: 10/17/22 19:03 Source: patient Mode of arrival: wheelchair Limitations: no limitations History of Present Illness HPI Narrative: Narrative: This is a 47-year-old female with a history of cerebral palsy and reported migraines presents to the emergency department with headache that has been going on for 6 days now. History is mostly obtained from the patient's father who lives with her. patient has been taking Tylenol at home without relief in her symptoms. The father states that on Saturday 3 days ago the patient began getting very sleepy. She has been sleeping in her recliner all day and night. He states that she is so sleepy that she is unsteady on her feet. She will get up to go to the bathroom. She will fall asleep mid conversation. There has been no fevers, chills, facial asymmetry, focal weakness. At baseline patient does sometimes use a walker or cane to get around with her history of cerebral palsy. The patient is prescribed Ambien and oxycodone. The father does state she is prescribed a medication to be taken as needed for migraines he cannot recall the name but states it has not been effective. The patient denies any alcohol or marijuana use. Patient is on Pradaxa. Related Data Home Medications Medication Instructions Recorded Confirmed ascorbate calcium (vitamin C) 500 1 g PO Q6H 04/03/22 09/10/22 mg tablet aspirin 81 mg tablet,delayed 81 mg PO QDAY 04/03/22 09/10/22 release ferrous sulfate 325 mg (65 mg 325 mg PO QDAY 04/03/22 09/10/22 iron) tablet pantoprazole 40 mg tablet,delayed 40 mg PO QDAY 04/03/22 09/10/22 release semaglutide 0.25 mg or 0.5 mg (2 0.25 mg subcut QWEEK 07/26/22 09/10/22 mg/1.5 mL) subcutaneous pen injector (Ozempic) Previous Rx's Medication Instructions Recorded cetirizine 10 mg capsule (Zyrtec) 10 mg PO QDAY #30 caps 10/11/20 linaclotide 290 mcg capsule See Rx Instructions .Route 10/05/21 (Linzess) .COMPLEX #30 caps dabigatran etexilate 150 mg 150 mg PO BID #60 caps 08/26/22 capsule (Pradaxa) zolpidem 10 mg tablet See Rx Instructions .Route 09/10/22 .COMPLEX #28 tabs diazepam 10 mg tablet 10 mg PO QDAY PRN muscle spasm and 09/17/22 anxiety 30 days #15 tabs pregabalin 150 mg capsule See Rx Instructions .Route 09/17/22 .COMPLEX 30 days #120 caps bupropion HCl 200 mg tablet,12 hr 200 mg PO BID #60 ea 09/19/22 sustained-release venlafaxine 150 mg 150 mg PO .QAM + Q2PM #60 caps 09/19/22 capsule,extended release 24 hr Allergies Allergy/AdvReac Type Severity Reaction Status Date / Time Amoxicillin Allergy Unknown Unknown Verified 10/17/22 18:04 baclofen Allergy Unknown Itching Verified 10/17/22 18:04 carisoprodol [From Soma] Allergy Unknown unk Verified 10/17/22 18:04 hydrocodone Allergy Unknown Unknown Verified 10/17/22 18:04 morphine Allergy Unknown Unknown Verified 10/17/22 18:04 oxycodone Allergy Unknown Unknown Verified 10/17/22 18:04 phenytoin [From Dilantin] Allergy Unknown Other Verified 10/17/22 18:04 Cyclobenzaprine AdvReac Intermediate Headache Verified 10/17/22 18:04 [From Flexeril] naproxen [From Naprosyn] AdvReac Intermediate Nausea Verified 10/17/22 18:04 Review of Systems ROS ROS Narrative: Narrative: Limitations: ROS unobtainable due to patients medical condition [facility] Narrative Patient History Narrative: Narrative: Medical/Surgical/Family History All Active Problems (Updated 10/18/22 @ 06:46 by Mayito Novoa MD) Pain in both hands (Acute) Bilateral foot pain (Acute) Headache (Acute) Cerebral palsy (Acute) Migraine (Acute) Altered mental status (Acute) Unilateral primary osteoarthritis, right knee (Chronic) Unilateral primary osteoarthritis, left knee (Chronic) Abnormal uterine bleeding (Chronic) Body mass index 40.0-44.9, adult (Chronic) Other spondylosis with radiculopathy, lumbar region (Chronic) Pelvic pain (Chronic) Morbid obesity due to excess calories (Chronic) Other low back pain (Chronic) Chronic back pain (Chronic) Ischemic leg (Chronic) PAD (peripheral artery disease) (Chronic) Headache (Chronic) PAD (peripheral artery disease) (Chronic) Chronic foot pain (Chronic) Myofascial pain syndrome (Chronic) Migraine (Chronic) Bilateral sacroiliitis (Chronic) Obesity (Chronic) Knee pain (Chronic) Arthritis (Chronic) Irritable bowel syndrome (Chronic) Hypertensive disorder (Chronic) Neuropathy (Chronic) Hypercholesterolemia (Chronic) Dorsalgia, unspecified (Chronic) S/P total knee arthroplasty (Chronic) Chronic knee pain after total replacement of right knee joint (Chronic) Cellulitis (Chronic) Sty, internal (Chronic) Fatigue (Chronic) Epigastric pain (Chronic) Developmental disability (Chronic) Generalized anxiety disorder (Chronic) Panic disorder (Chronic) Major depressive disorder, recurrent (Chronic) Intellectual disability (Chronic) Abscess (Chronic) Vaginal pruritus (Chronic) Sacral back pain (Chronic) Urinary incontinence (Chronic) Lumbar strain (Chronic) Cervical sprain (Chronic) Concussion (Chronic) Abnormal CT scan, lung (Chronic) Diabetes (Chronic) Bleeding ulcer (Chronic) Nicotine use disorder (Chronic) Migraine (Chronic) Bilateral sacroiliitis (Chronic) Exacerbation of chronic back pain (Chronic) Spasm of muscle of lower back (Chronic) Dizziness (Chronic) Urine incontinence (Chronic) Fecal incontinence (Chronic) Metabolic syndrome (Chronic) Hypoglycemia (Chronic) Chronic back pain greater than 3 months duration (Chronic) Chronic SI joint pain (Chronic) Nocturnal hypoxemia (Chronic) Spondylosis without myelopathy or radiculopathy, lumbar region (Chronic) Nervousness (Chronic) Mood changes (Chronic) Joint pain (Chronic) History of arthroscopy of right knee (Chronic) History of knee replacement procedure of right knee (Chronic) Low back pain (Chronic) History of surgery (Chronic) Lumbar disc herniation (Chronic) Lumbar spondylitis (Chronic) Type 2 diabetes mellitus without complications (Chronic) 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) Hypothyroidism (Chronic) History of knee surgery (Chronic 11/27/18) Encounter for therapeutic drug level monitoring (Chronic) ADD (attention deficit disorder) (Chronic) Seasonal allergic rhinitis (Chronic) Irregular menses (Chronic) Allergic rhinitis (Chronic) Insomnia (Chronic) Weight gain (Chronic) Bipolar disorder (Chronic) Verruca vulgaris (Chronic) Hx of hyperglycemia (Chronic) Elevated sedimentation rate (Chronic) Excessive caffeine intake (Chronic) Vitamin D deficiency (Chronic) Acne vulgaris (Chronic) Tachycardia (Chronic) Anxiety (Chronic) Atopic dermatitis (Chronic) Insulin resistance syndrome (Chronic) Chronic TMJ pain (Chronic) Menstrual pain (Chronic) Seasonal affective disorder (Chronic) Hidradenitis suppurativa (Chronic) Cerebral palsy (Chronic) Back pain (Chronic) Restless leg syndrome (Chronic) Phlebitis of superficial vein of upper extremity (Chronic) Lumbar radiculopathy (Chronic) Headache (Chronic) Neck pain (Chronic) Dysphagia, unspecified (Chronic) Tendinitis of right wrist (Chronic) Osteophyte (Chronic) Paresthesia of both hands (Chronic) Anxiety with depression (Chronic) Cervical radiculopathy (Chronic) Constipation (Chronic) Hyperlipidemia (Chronic) Obesity (Chronic) Depression (Chronic) Metabolic syndrome X (Chronic) Muscle spasm (Chronic) Knee pain, right (Chronic) BMI 34.0-34.9,adult (Chronic) Smoker (Chronic) Nicotine withdrawal (Chronic) Isolated cervical dystonia (Chronic) Dysthymia (Chronic) Mild intellectual disability (Chronic) Other problems related to social environment (Chronic) Knee pain, left (Chronic) Lumbar back pain (Chronic) Medical History Abnormal CT scan, lung Abnormal uterine bleeding Abscess Acne vulgaris ADD (attention deficit disorder) Allergic rhinitis Anxiety Anxiety with depression Arthritis Atopic dermatitis Back pain Bilateral sacroiliitis Bilateral sacroiliitis Bipolar disorder Bleeding ulcer BMI 34.0-34.9,adult Body mass index 40.0-44.9, adult Cellulitis Cerebral palsy Cervical radiculopathy Cervical sprain Chronic back pain Chronic back pain greater than 3 months duration Chronic knee pain after total replacement of right knee joint uncomplicated total knee replacement. D/c home to family. She will continue PT as an outpartient. aspirin for DVT prophylaxis Chronic SI joint pain Chronic TMJ pain Concussion Constipation Depression Developmental disability Diabetes Dizziness Dorsalgia, unspecified Dysphagia, unspecified Dysthymia Elevated sedimentation rate history of... Encounter for therapeutic drug level monitoring Epigastric pain Exacerbation of chronic back pain Excessive caffeine intake Fatigue Fecal incontinence Generalized anxiety disorder Headache Hidradenitis suppurativa Hx of hyperglycemia Hypercholesterolemia Hyperlipidemia Hypertensive disorder Hypoglycemia Hypothyroidism Insomnia Insulin resistance syndrome Intellectual disability Irregular menses Irritable bowel syndrome Isolated cervical dystonia Joint pain Knee pain Knee pain, left Knee pain, right Low back pain Lumbar back pain Lumbar disc herniation Lumbar radiculopathy Lumbar spondylitis Lumbar strain Major depressive disorder, recurrent Menstrual pain Metabolic syndrome Metabolic syndrome X Migraine Migraine Mild intellectual disability Mood changes Morbid obesity due to excess calories Muscle spasm Myofascial pain syndrome Neck pain Nervousness Neuropathy Nicotine use disorder Nicotine withdrawal Nocturnal hypoxemia Obesity Osteophyte Other low back pain Other problems related to social environment Other spondylosis with radiculopathy, lumbar region Panic disorder Paresthesia of both hands Pelvic pain Phlebitis of superficial vein of upper extremity Restless leg syndrome Sacral back pain Seasonal affective disorder Seasonal allergic rhinitis Smoker Spasm of muscle of lower back Spastic hemiplegic cerebral palsy Spondylosis without myelopathy or radiculopathy, lumbar region Sty, internal Tachycardia Tendinitis of right wrist TMJ pain dysfunction syndrome Type 2 diabetes mellitus without complications Unilateral primary osteoarthritis, left knee Unilateral primary osteoarthritis, right knee Urinary incontinence Urinary incontinence Urine incontinence Vaginal pruritus Verruca vulgaris Vitamin D deficiency Weight gain after psyche meds started Surgical History History of arthroscopy of right knee History of knee replacement procedure of right knee History of knee surgery (11/27/18) Dr Pozo at [facility] Left knee 04/09/2019 History of surgery SI Joint Injection, Left w/sed 08/19/201307/03 Discogram, Lumbar L5-S1 w/sed 07/01/201306/03 Facet injection, L5-S1 left w/o sed 06/04/201301/31 LESI #3 L5-S1 w/sed 01/29/201301/01 LESI #2 L5-S1 Lt Direct w/sed 01-08-1301/01 LESI #1 L5-S1 w/sed 12/23/12 S/P total knee arthroplasty Family History Mother Depression never diagnosed Uterine fibroid Brother Depression never diagnosed Grandmother Arthritis Paternal Diabetes mellitus Paternal Malignant tumor of kidney Maternal Dementia Paternal and maternal Stroke Maternal and paternal Daughter Cerebral palsy Back problem Social History Smoking Status: Former smoker Alcohol Intake Frequency: does not drink Substance Use: does not use Exam Narrative Narrative: Narrative: Vital signs noted General: Sleeping will wake up for a few seconds to answer questions but then will fall back asleep does not appear to be any acute distress HEENT: NCAT PERRL EOMI. pupils are 5 mm equal round briskly reactive bilaterally symmetric, grossly normal funduscopic examination on nondilated exam Neck: Supple, trachea midline Cardiovascular: RRR. No murmur. No rubs. No gallops. Respiratory: No respiratory distress. Breath sounds equal. Lungs clear. Gastrointestinal: Soft. No tenderness Musculoskeletal: No pain. No soft tissue swelling. Good ROM. No signs injury Skin: Warm. Dry. No rash Neurologic: Alert and oriented x3 moves all extremities equally, face is symmetric, speech does seem somewhat slurred General Limitations: no limitations Course Vital Signs Vital signs: Vital Signs Temperature 97.4 F 10/17/22 18:01 Pulse Rate 100 H 10/17/22 18:01 Respiratory Rate 16 10/17/22 18:01 Blood Pressure 122/78 10/17/22 18:01 Pulse Oximetry (%) 88 L 10/17/22 18:01 Oxygen Delivery Method Room Air 10/17/22 18:01 Temperature 97.8 F 10/18/22 02:45 Pulse Rate 82 10/18/22 02:45 Respiratory Rate 16 10/18/22 02:45 Blood Pressure 94/60 10/18/22 02:45 Pulse Oximetry (%) 95 10/18/22 02:45 Oxygen Delivery Method Nasal Cannula 10/18/22 02:45 Oxygen Flow Rate (L/min) 1 10/18/22 02:45 MDM MDM Narrative Medical decision making narrative: Narrative: This is a 47-year-old female with reported known history of migraines presents to the emergency department with what she states is her typical migraine has been going on for 6 days she had increasing somnolence for the last 3 days. I have reviewed several emergency department notes and the patient has been seen for migraines in the past it sounds like she generally gets some improvement with migraine cocktail. Patient was ordered Compazine and Benadryl a CT scan of the brain given the patient is on anticoagulation was obtained this did not show any acute intracranial process I have personally reviewed these images. After these coming back I did give the patient a dose of Toradol. Patient is without any infectious symptoms I do not think that this is meningitis or encephalitis, her CBC does not show a leukocytosis or left shift. Patient's chemistry shows a normal sodium of 141, creatinine is 1.0, normal hepatic function panel, ammonia is 43. Patient's alcohol is negative, positive for oxycodone and benzodiazepines patient is prescribed oxycodone and Ambien. I have reviewed patients prescription monitoring program, which confirms these prescriptions along with pregabalin. Patient's venous blood gas does not show significant hypercarbia. Patient was observed in the emergency department for almost 8 hours she reported improvement in her headache but she still very somnolent and after answering questions will fall right back asleep. I was hopeful that with treatment of the patient's migraine that her mentation would improve and it has not. I did consider giving the patient DHE or sumatriptan for her migraine however contraindicated since she has a significant history of peripheral arterial disease and ischemic left lower extremity she had surgery in April of last year. I have spoke with the hospitalist who has agreed to admit the patient under observation. She is very somnolent do not feel she is safe for discharge systematically. My concerns are either overmedication however no major medication changes and her father gives her her medicines, or confusional migraine. Lab Data 10/17/22 19:45 Labs: Lab Results 10/17/22 10/17/22 10/17/22 Range/Units 00:48 19:42 19:45 WBC 7.7 (4.5-11.0) K/mcL RBC 4.12 (3.59-5.38) M/mcL Hgb 13.2 (11.2-15.7) g/dL Hct 41.7 (34.1-44.9) % POC Hct 42.0 (36-48) MCV 101.2 H (80.0-100.0) fL MCH 32.0 (26.0-34.0) pg MCHC 31.7 (31.0-36.0) g/dL RDW 13.2 (11.5-14.5) % Plt Count 248 (140-440) K/mcL MPV 10.6 (8.8-12.5) fL Immature Gran % (Auto) 0.6 H (0.0-0.5) % Neut % (Auto) 46.8 (38.0-78.0) % Lymph % (Auto) 40.6 (15.5-49.0) % Dewitt % (Auto) 10.5 (1.0-12.0) % Eos % (Auto) 0.9 (0.0-7.0) % Baso % (Auto) 0.6 (0.0-2.0) % Lymph # (Auto) 3.14 (1.50-4.80) K/mcL Dewitt # (Auto) 0.81 (0.10-0.90) K/mcL Eos # (Auto) 0.07 (0.00-0.70) K/mcL Baso # (Auto) 0.05 (0.00-0.30) K/mcL Immature Gran # 0.05 (0.00-0.05) K/mcl Absolute Neutrophils 3.61 (1.80-8.00) K/mcL POC VBG pH (7.32-7.42) POC VBG pCO2 at Temp (41-51) POC VBG pO2 (25-40) POC VBG HCO3 (24-28) POC VBG Total CO2 (25-29) POC Venous O2 Sat (40-70) POC VBG Base Excess (-2-2) VBG Lactic Acid (0.5-2) POC Sodium 141 (133-145) POC Potassium 3.8 (3.3-5.1) POC Chloride 102 (96-108) POC Total CO2 30.0 (22-30) POC BUN 17 (6-20) POC Creatinine 1.0 (0.6-1.2) POC Glucose 98 (70-105) POC WB Ioniz Calcium 1.17 (1.16-1.32) Total Bilirubin (0.1-1.0) mg/dL Direct Bilirubin (0-0.3) mg/dL AST (<32) U/L ALT (<40) U/L Alkaline Phosphatase (39-117) U/L Ammonia (11-51) umol/L Total Protein (5.9-8.4) gm/dL Albumin (3.2-5.2) gm/dL Globulin (2.2-3.7) gm/dL HCG, Qual Urine Opiates Screen None detected Ur Opiates Confirm TNP Ur Oxycodone Screen Suspect positive A Urine Methadone Screen None detected Ur Methadone Confirm TNP Ur Barbiturates Screen None detected Ur Barbiturate Confirm TNP Ur Phencyclidine Scrn None detected Urine PCP Confirm TNP Ur Amphetamines Screen None detected U Amphetamines Confirm TNP U Benzodiazepines Scrn Suspect positive A Urine Cocaine Screen None detected Urine Cocaine Confirm TNP U Cannabinoids Confirm TNP U Marijuana (THC) Screen None detected Ethyl Alcohol mg/dL Ethyl Alcohol g/dL 10/17/22 10/17/22 10/17/22 Range/Units 19:45 19:45 22:29 WBC (4.5-11.0) K/mcL RBC (3.59-5.38) M/mcL Hgb (11.2-15.7) g/dL Hct (34.1-44.9) % POC Hct (36-48) MCV (80.0-100.0) fL MCH (26.0-34.0) pg MCHC (31.0-36.0) g/dL RDW (11.5-14.5) % Plt Count (140-440) K/mcL MPV (8.8-12.5) fL Immature Gran % (Auto) (0.0-0.5) % Neut % (Auto) (38.0-78.0) % Lymph % (Auto) (15.5-49.0) % Dewitt % (Auto) (1.0-12.0) % Eos % (Auto) (0.0-7.0) % Baso % (Auto) (0.0-2.0) % Lymph # (Auto) (1.50-4.80) K/mcL Dewitt # (Auto) (0.10-0.90) K/mcL Eos # (Auto) (0.00-0.70) K/mcL Baso # (Auto) (0.00-0.30) K/mcL Immature Gran # (0.00-0.05) K/mcl Absolute Neutrophils (1.80-8.00) K/mcL POC VBG pH (7.32-7.42) POC VBG pCO2 at Temp (41-51) POC VBG pO2 (25-40) POC VBG HCO3 (24-28) POC VBG Total CO2 (25-29) POC Venous O2 Sat (40-70) POC VBG Base Excess (-2-2) VBG Lactic Acid (0.5-2) POC Sodium (133-145) POC Potassium (3.3-5.1) POC Chloride (96-108) POC Total CO2 (22-30) POC BUN (6-20) POC Creatinine (0.6-1.2) POC Glucose (70-105) POC WB Ioniz Calcium (1.16-1.32) Total Bilirubin 0.6 (0.1-1.0) mg/dL Direct Bilirubin < 0.2 (0-0.3) mg/dL AST 29 (<32) U/L ALT 31 (<40) U/L Alkaline Phosphatase 127 H (39-117) U/L Ammonia (11-51) umol/L Total Protein 7.4 (5.9-8.4) gm/dL Albumin 4.2 (3.2-5.2) gm/dL Globulin 3.2 (2.2-3.7) gm/dL HCG, Qual Negative Urine Opiates Screen Ur Opiates Confirm Ur Oxycodone Screen Urine Methadone Screen Ur Methadone Confirm Ur Barbiturates Screen Ur Barbiturate Confirm Ur Phencyclidine Scrn Urine PCP Confirm Ur Amphetamines Screen U Amphetamines Confirm U Benzodiazepines Scrn Urine Cocaine Screen Urine Cocaine Confirm U Cannabinoids Confirm U Marijuana (THC) Screen Ethyl Alcohol mg/dL TNP Ethyl Alcohol g/dL TNP 10/17/22 10/18/22 10/18/22 Range/Units 22:55 00:46 00:47 WBC (4.5-11.0) K/mcL RBC (3.59-5.38) M/mcL Hgb (11.2-15.7) g/dL Hct (34.1-44.9) % POC Hct (36-48) MCV (80.0-100.0) fL MCH (26.0-34.0) pg MCHC (31.0-36.0) g/dL RDW (11.5-14.5) % Plt Count (140-440) K/mcL MPV (8.8-12.5) fL Immature Gran % (Auto) (0.0-0.5) % Neut % (Auto) (38.0-78.0) % Lymph % (Auto) (15.5-49.0) % Dewitt % (Auto) (1.0-12.0) % Eos % (Auto) (0.0-7.0) % Baso % (Auto) (0.0-2.0) % Lymph # (Auto) (1.50-4.80) K/mcL Dewitt # (Auto) (0.10-0.90) K/mcL Eos # (Auto) (0.00-0.70) K/mcL Baso # (Auto) (0.00-0.30) K/mcL Immature Gran # (0.00-0.05) K/mcl Absolute Neutrophils (1.80-8.00) K/mcL POC VBG pH 7.34 (7.32-7.42) POC VBG pCO2 at Temp 54.1 H (41-51) POC VBG pO2 67 H (25-40) POC VBG HCO3 29.5 H (24-28) POC VBG Total CO2 31.0 H (25-29) POC Venous O2 Sat 91.0 H (40-70) POC VBG Base Excess 4.0 H* (-2-2) VBG Lactic Acid 0.5 (0.5-2) POC Sodium (133-145) POC Potassium (3.3-5.1) POC Chloride (96-108) POC Total CO2 (22-30) POC BUN (6-20) POC Creatinine (0.6-1.2) POC Glucose (70-105) POC WB Ioniz Calcium (1.16-1.32) Total Bilirubin (0.1-1.0) mg/dL Direct Bilirubin (0-0.3) mg/dL AST (<32) U/L ALT (<40) U/L Alkaline Phosphatase (39-117) U/L Ammonia 43 (11-51) umol/L Total Protein (5.9-8.4) gm/dL Albumin (3.2-5.2) gm/dL Globulin (2.2-3.7) gm/dL HCG, Qual Urine Opiates Screen Ur Opiates Confirm Ur Oxycodone Screen Urine Methadone Screen Ur Methadone Confirm Ur Barbiturates Screen Ur Barbiturate Confirm Ur Phencyclidine Scrn Urine PCP Confirm Ur Amphetamines Screen U Amphetamines Confirm U Benzodiazepines Scrn Urine Cocaine Screen Urine Cocaine Confirm U Cannabinoids Confirm U Marijuana (THC) Screen Ethyl Alcohol mg/dL < 10.0 Ethyl Alcohol g/dL < 0.010 Discharge Plan Patient/Caregiver Discharge Instructions Pt seen by [facility] [employer]ER/PA only: No Clinical Impression: Migraine, Altered mental status Activity: resume usual activities as tolerated Patient Disposition: Xfer As Outpt/Obs ([facility]) Condition: Fair Discharge Date/Time: 10/18/22 02:35 Discharge Location: [facility] Discharge Comment: Admit med surg 112 @ [id number]
[2022-10-18] MEDS ORDERED: ONDANSETRON 4 MG/2 ML VIAL IV PRN ×2 (02:06→09:58)
--- NOTE | 2022-10-18 09:07 | Internal Med History&Physical ---
HPI History of Present Illness Patient information: Note initiated : 10/18/22 at 9:06 am Service Date, if different from initiated Date: [] Patient: Shirlene Pradhan a 47 y/o F admitted on 10/18/22 for migraine, confusion, unable to walk, weakness. Chief Complaint: [sleepiness] Chief complaint: sleepiness History of present illness: Ms. Pradhan is a 47 year old F history of cerebral palsy, depressions, diabetes, peripheral artery disease, migraine headache, obesity, presenting with 1 week history of increased sleepiness. Patient's father said the patient to the ER overnight for her increased sleepiness over the past week. Patient denies such Pain and she stated she is unaware of the having any increased sleepiness oral during my interview with her at the bedside this morning she would frequently close her eyes senior living during our conversations. She denies having history of narcolepsy, sleep apnea, or any other sleep disturbance. In additions, it was reported that she had received Botox injections for her migraine headaches about a week ago. There is no new changes of her medications. Labs obtained in the ED significant for urine drug screen positive for opioids and benzodiazepines. Venous blood gas significant for mildly elevated PCO2 at 54.1. CT of the head without contrast no acute intracranial pathologies. Constitutional Constitutional: Absent chills, excessive sweating, fatigue, fever(s) or weakness EENT Eyes: Absent blurry vision, change in vision, loss of vision or other visual disturbances Ears: Absent decreased hearing or tinnitus Nose, mouth and throat: Absent abnormal hearing, dry mouth, headache(s), nasal congestion or sore throat Cardiovascular Cardiovascular: Absent chest pain, chest pain at rest, edema, irregular heart rhythm or palpatations Respiratory Respiratory: Absent cough, dyspnea or wheezing Gastrointestinal Gastrointestinal: Absent abdominal pain, constipation, diarrhea, nausea or vomiting Musculoskeletal Musculoskeletal: Absent back pain, deformity, limited range of motion, muscle cramps, muscle weakness or numbness Integumentary Integumentary: Absent lesions, rash or wounds Neurological Neurological: Absent focal weakness, headache(s) or numbness Psychiatric Psychiatric: Absent anxiety, depression or hallucinations PFSH PFSH All Active Problems (Updated 10/18/22 @ 09:14 by Braulio Sears MD) Lethargy (Acute) Pain in both hands (Acute) Bilateral foot pain (Acute) Headache (Acute) Cerebral palsy (Acute) Migraine (Acute) Altered mental status (Acute) Unilateral primary osteoarthritis, right knee (Chronic) Unilateral primary osteoarthritis, left knee (Chronic) Abnormal uterine bleeding (Chronic) Body mass index 40.0-44.9, adult (Chronic) Other spondylosis with radiculopathy, lumbar region (Chronic) Pelvic pain (Chronic) Morbid obesity due to excess calories (Chronic) Other low back pain (Chronic) Chronic back pain (Chronic) Ischemic leg (Chronic) PAD (peripheral artery disease) (Chronic) Headache (Chronic) PAD (peripheral artery disease) (Chronic) Chronic foot pain (Chronic) Myofascial pain syndrome (Chronic) Migraine (Chronic) Bilateral sacroiliitis (Chronic) Obesity (Chronic) Knee pain (Chronic) Arthritis (Chronic) Irritable bowel syndrome (Chronic) Hypertensive disorder (Chronic) Neuropathy (Chronic) Hypercholesterolemia (Chronic) Dorsalgia, unspecified (Chronic) S/P total knee arthroplasty (Chronic) Chronic knee pain after total replacement of right knee joint (Chronic) Cellulitis (Chronic) Sty, internal (Chronic) Fatigue (Chronic) Epigastric pain (Chronic) Developmental disability (Chronic) Generalized anxiety disorder (Chronic) Panic disorder (Chronic) Major depressive disorder, recurrent (Chronic) Intellectual disability (Chronic) Abscess (Chronic) Vaginal pruritus (Chronic) Sacral back pain (Chronic) Urinary incontinence (Chronic) Lumbar strain (Chronic) Cervical sprain (Chronic) Concussion (Chronic) Abnormal CT scan, lung (Chronic) Diabetes (Chronic) Bleeding ulcer (Chronic) Nicotine use disorder (Chronic) Migraine (Chronic) Bilateral sacroiliitis (Chronic) Exacerbation of chronic back pain (Chronic) Spasm of muscle of lower back (Chronic) Dizziness (Chronic) Urine incontinence (Chronic) Fecal incontinence (Chronic) Metabolic syndrome (Chronic) Hypoglycemia (Chronic) Chronic back pain greater than 3 months duration (Chronic) Chronic SI joint pain (Chronic) Nocturnal hypoxemia (Chronic) Spondylosis without myelopathy or radiculopathy, lumbar region (Chronic) Nervousness (Chronic) Mood changes (Chronic) Joint pain (Chronic) History of arthroscopy of right knee (Chronic) History of knee replacement procedure of right knee (Chronic) Low back pain (Chronic) History of surgery (Chronic) Lumbar disc herniation (Chronic) Lumbar spondylitis (Chronic) Type 2 diabetes mellitus without complications (Chronic) 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) Hypothyroidism (Chronic) History of knee surgery (Chronic 11/27/18) Encounter for therapeutic drug level monitoring (Chronic) ADD (attention deficit disorder) (Chronic) Seasonal allergic rhinitis (Chronic) Irregular menses (Chronic) Allergic rhinitis (Chronic) Insomnia (Chronic) Weight gain (Chronic) Bipolar disorder (Chronic) Verruca vulgaris (Chronic) Hx of hyperglycemia (Chronic) Elevated sedimentation rate (Chronic) Excessive caffeine intake (Chronic) Vitamin D deficiency (Chronic) Acne vulgaris (Chronic) Tachycardia (Chronic) Anxiety (Chronic) Atopic dermatitis (Chronic) Insulin resistance syndrome (Chronic) Chronic TMJ pain (Chronic) Menstrual pain (Chronic) Seasonal affective disorder (Chronic) Hidradenitis suppurativa (Chronic) Cerebral palsy (Chronic) Back pain (Chronic) Restless leg syndrome (Chronic) Phlebitis of superficial vein of upper extremity (Chronic) Lumbar radiculopathy (Chronic) Headache (Chronic) Neck pain (Chronic) Dysphagia, unspecified (Chronic) Tendinitis of right wrist (Chronic) Osteophyte (Chronic) Paresthesia of both hands (Chronic) Anxiety with depression (Chronic) Cervical radiculopathy (Chronic) Constipation (Chronic) Hyperlipidemia (Chronic) Obesity (Chronic) Depression (Chronic) Metabolic syndrome X (Chronic) Muscle spasm (Chronic) Knee pain, right (Chronic) BMI 34.0-34.9,adult (Chronic) Smoker (Chronic) Nicotine withdrawal (Chronic) Isolated cervical dystonia (Chronic) Dysthymia (Chronic) Mild intellectual disability (Chronic) Other problems related to social environment (Chronic) Knee pain, left (Chronic) Lumbar back pain (Chronic) Medical History Abnormal CT scan, lung Abnormal uterine bleeding Abscess Acne vulgaris ADD (attention deficit disorder) Allergic rhinitis Anxiety Anxiety with depression Arthritis Atopic dermatitis Back pain Bilateral sacroiliitis Bilateral sacroiliitis Bipolar disorder Bleeding ulcer BMI 34.0-34.9,adult Body mass index 40.0-44.9, adult Cellulitis Cerebral palsy Cervical radiculopathy Cervical sprain Chronic back pain Chronic back pain greater than 3 months duration Chronic knee pain after total replacement of right knee joint uncomplicated total knee replacement. D/c home to family. She will continue PT as an outpartient. aspirin for DVT prophylaxis Chronic SI joint pain Chronic TMJ pain Concussion Constipation Depression Developmental disability Diabetes Dizziness Dorsalgia, unspecified Dysphagia, unspecified Dysthymia Elevated sedimentation rate history of... Encounter for therapeutic drug level monitoring Epigastric pain Exacerbation of chronic back pain Excessive caffeine intake Fatigue Fecal incontinence Generalized anxiety disorder Headache Hidradenitis suppurativa Hx of hyperglycemia Hypercholesterolemia Hyperlipidemia Hypertensive disorder Hypoglycemia Hypothyroidism Insomnia Insulin resistance syndrome Intellectual disability Irregular menses Irritable bowel syndrome Isolated cervical dystonia Joint pain Knee pain Knee pain, left Knee pain, right Low back pain Lumbar back pain Lumbar disc herniation Lumbar radiculopathy Lumbar spondylitis Lumbar strain Major depressive disorder, recurrent Menstrual pain Metabolic syndrome Metabolic syndrome X Migraine Migraine Mild intellectual disability Mood changes Morbid obesity due to excess calories Muscle spasm Myofascial pain syndrome Neck pain Nervousness Neuropathy Nicotine use disorder Nicotine withdrawal Nocturnal hypoxemia Obesity Osteophyte Other low back pain Other problems related to social environment Other spondylosis with radiculopathy, lumbar region Panic disorder Paresthesia of both hands Pelvic pain Phlebitis of superficial vein of upper extremity Restless leg syndrome Sacral back pain Seasonal affective disorder Seasonal allergic rhinitis Smoker Spasm of muscle of lower back Spastic hemiplegic cerebral palsy Spondylosis without myelopathy or radiculopathy, lumbar region Sty, internal Tachycardia Tendinitis of right wrist TMJ pain dysfunction syndrome Type 2 diabetes mellitus without complications Unilateral primary osteoarthritis, left knee Unilateral primary osteoarthritis, right knee Urinary incontinence Urinary incontinence Urine incontinence Vaginal pruritus Verruca vulgaris Vitamin D deficiency Weight gain after psyche meds started Surgical History History of arthroscopy of right knee History of knee replacement procedure of right knee History of knee surgery (11/27/18) Dr Pozo at [facility] Left knee 04/09/2019 History of surgery SI Joint Injection, Left w/sed 08/19/201307/03 Discogram, Lumbar L5-S1 w/sed 07/01/201306/03 Facet injection, L5-S1 left w/o sed 06/04/201301/31 LESI #3 L5-S1 w/sed 01/29/201301/01 LESI #2 L5-S1 Lt Direct w/sed 01-08-1301/01 LESI #1 L5-S1 w/sed 12/23/12 S/P total knee arthroplasty Family History Mother Depression never diagnosed Uterine fibroid Brother Depression never diagnosed Grandmother Arthritis Paternal Diabetes mellitus Paternal Malignant tumor of kidney Maternal Dementia Paternal and maternal Stroke Maternal and paternal Daughter Cerebral palsy Back problem Social History marital status: single occupational status: disabled sexually active: No physical activity: none smoking status: Former smoker alcohol intake frequency: does not drink substance use type: does not use MEDS/ALLERGIES Home Medications and Allergies Home Medications Medication Instructions Recorded Confirmed Type linaclotide 290 mcg capsule See Rx Instructions .Route 10/05/21 10/18/22 Rx (Linzess) .COMPLEX #30 caps aspirin 81 mg tablet,delayed 81 mg PO QDAY 04/03/22 10/18/22 History release pantoprazole 40 mg tablet,delayed 40 mg PO QDAY 04/03/22 10/18/22 History release semaglutide 0.25 mg or 0.5 mg (2 0.5 mg subcut QWEEK 07/26/22 10/18/22 History mg/1.5 mL) subcutaneous pen injector (Ozempic) dabigatran etexilate 150 mg 150 mg PO BID #60 caps 08/26/22 10/18/22 Rx capsule (Pradaxa) zolpidem 10 mg tablet See Rx Instructions .Route 09/10/22 10/18/22 Rx .COMPLEX #28 tabs diazepam 10 mg tablet 10 mg PO QDAY PRN muscle spasm and 09/17/22 10/18/22 Rx anxiety 30 days #15 tabs pregabalin 150 mg capsule See Rx Instructions .Route 09/17/22 10/18/22 Rx .COMPLEX 30 days #120 caps bupropion HCl 200 mg tablet,12 hr 200 mg PO BID #60 ea 09/19/22 10/18/22 Rx sustained-release venlafaxine 150 mg 150 mg PO .QAM + Q2PM #60 caps 09/19/22 10/18/22 Rx capsule,extended release 24 hr atorvastatin 40 mg tablet 80 mg PO HS 10/18/22 10/18/22 History furosemide 20 mg tablet 20 mg PO QDAY 10/18/22 10/18/22 History oxycodone-acetaminophen 7.5 mg-325 1 tab PO BID 10/18/22 10/18/22 History mg tablet Allergies Allergy/AdvReac Type Severity Reaction Status Date / Time Amoxicillin Allergy Unknown Unknown Verified 10/18/22 07:52 carisoprodol [From Soma] Allergy Unknown unk Verified 10/18/22 07:52 hydrocodone Allergy Unknown Unknown Verified 10/18/22 07:52 morphine Allergy Unknown Unknown Verified 10/18/22 07:52 oxycodone Allergy Unknown Unknown Verified 10/18/22 07:52 phenytoin [From Dilantin] Allergy Unknown Other Verified 10/18/22 07:52 naproxen [From Naprosyn] AdvReac Intermediate Nausea Verified 10/18/22 07:52 baclofen AdvReac Mild Itching Verified 10/18/22 07:52 Cyclobenzaprine AdvReac Mild Headache Verified 10/18/22 07:52 [From Flexeril] EXAM Constitutional Vitals: Temp Pulse Resp BP Pulse Ox O2 Del Method O2 Flow Rate 36.7 C 76 18 111/70 95 Nasal Cannula 1 10/18/22 07:52 10/18/22 07:52 10/18/22 07:52 10/18/22 07:52 10/18/22 07:52 10/18/22 07:52 10/18/22 07:52 General appearance: cooperative, morbidly obese and no acute distress Exam: Patient would close her eyes senior living through our conversation during interview/examination Head Head exam: Present atraumatic and normocephalic Eye Eye exam: Present EOMI and PERRL ENT ENT exam: Present mucous membranes moist, normal exam and normal external ear exam Additional comments: Nasal cannula in place Neck Neck exam: Present normal inspection; Absent lymphadenopathy, tenderness or thyromegaly Respiratory Respiratory exam: Absent accessory muscle use, respiratory distress or wheezes Cardiovascular Cardiovascular exam: Present normal rate and rhythm; Absent JVD GI/Abdominal GI/Abdominal exam: Present normal bowel sounds and soft; Absent organomegaly or tenderness Extremities Exam Extremities exam: Present full ROM, normal capillary refill and normal inspection; Absent tenderness Neurological Exam Neurological exam: Present alert, CN II-XII intact and oriented X3; Absent motor sensory deficit Psychiatric Psychiatric exam: Present normal affect and normal mood; Absent anxious or depressed Skin Skin exam: Present dry and intact DATA Data Completed and Pending Labs: Labs from last 24 hours 10/18/22 10/18/22 10/17/22 00:47 00:46 22:55 WBC RBC Hgb Hct POC Hct MCV MCH MCHC RDW Plt Count MPV Immature Gran % (Auto) Neut % (Auto) Lymph % (Auto) [place] % (Auto) Eos % (Auto) Baso % (Auto) Lymph # (Auto) [place] # (Auto) Eos # (Auto) Baso # (Auto) Immature Gran # Absolute Neutrophils POC VBG pH 7.34 POC VBG pCO2 at Temp 54.1 H POC VBG pO2 67 H POC VBG HCO3 29.5 H POC VBG Total CO2 31.0 H POC Venous O2 Sat 91.0 H POC VBG Base Excess 4.0 H* VBG Lactic Acid 0.5 POC Sodium POC Potassium POC Chloride POC Total CO2 POC BUN POC Creatinine POC Glucose POC WB Ioniz Calcium Total Bilirubin Direct Bilirubin AST ALT Alkaline Phosphatase Ammonia 43 Total Protein Albumin Globulin HCG, Qual Urine Opiates Screen Ur Opiates Confirm Ur Oxycodone Screen U Oxycod/Oxymor Confirm Urine Methadone Screen Ur Methadone Confirm Ur Barbiturates Screen Ur Barbiturate Confirm Ur Phencyclidine Scrn Urine PCP Confirm Ur Amphetamines Screen U Amphetamines Confirm U Benzodiazepines Scrn Ur Benzodiazepine, Qnt Urine Cocaine Screen Urine Cocaine Confirm U Cannabinoids Confirm U Marijuana (THC) Screen Ethyl Alcohol mg/dL < 10.0 Ethyl Alcohol g/dL < 0.010 10/17/22 10/17/22 10/17/22 22:29 19:45 19:45 WBC RBC Hgb Hct POC Hct MCV MCH MCHC RDW Plt Count MPV Immature Gran % (Auto) Neut % (Auto) Lymph % (Auto) [place] % (Auto) Eos % (Auto) Baso % (Auto) Lymph # (Auto) [place] # (Auto) Eos # (Auto) Baso # (Auto) Immature Gran # Absolute Neutrophils POC VBG pH POC VBG pCO2 at Temp POC VBG pO2 POC VBG HCO3 POC VBG Total CO2 POC Venous O2 Sat POC VBG Base Excess VBG Lactic Acid POC Sodium POC Potassium POC Chloride POC Total CO2 POC BUN POC Creatinine POC Glucose POC WB Ioniz Calcium Total Bilirubin 0.6 Direct Bilirubin < 0.2 AST 29 ALT 31 Alkaline Phosphatase 127 H Ammonia Total Protein 7.4 Albumin 4.2 Globulin 3.2 HCG, Qual Negative Urine Opiates Screen Ur Opiates Confirm Ur Oxycodone Screen U Oxycod/Oxymor Confirm Urine Methadone Screen Ur Methadone Confirm Ur Barbiturates Screen Ur Barbiturate Confirm Ur Phencyclidine Scrn Urine PCP Confirm Ur Amphetamines Screen U Amphetamines Confirm U Benzodiazepines Scrn Ur Benzodiazepine, Qnt Urine Cocaine Screen Urine Cocaine Confirm U Cannabinoids Confirm U Marijuana (THC) Screen Ethyl Alcohol mg/dL TNP Ethyl Alcohol g/dL TNP 10/17/22 10/17/22 10/17/22 19:45 19:42 00:48 WBC 7.7 RBC 4.12 Hgb 13.2 Hct 41.7 POC Hct 42.0 MCV 101.2 H MCH 32.0 MCHC 31.7 RDW 13.2 Plt Count 248 MPV 10.6 Immature Gran % (Auto) 0.6 H Neut % (Auto) 46.8 Lymph % (Auto) 40.6 [place] % (Auto) 10.5 Eos % (Auto) 0.9 Baso % (Auto) 0.6 Lymph # (Auto) 3.14 [place] # (Auto) 0.81 Eos # (Auto) 0.07 Baso # (Auto) 0.05 Immature Gran # 0.05 Absolute Neutrophils 3.61 POC VBG pH POC VBG pCO2 at Temp POC VBG pO2 POC VBG HCO3 POC VBG Total CO2 POC Venous O2 Sat POC VBG Base Excess VBG Lactic Acid POC Sodium 141 POC Potassium 3.8 POC Chloride 102 POC Total CO2 30.0 POC BUN 17 POC Creatinine 1.0 POC Glucose 98 POC WB Ioniz Calcium 1.17 Total Bilirubin Direct Bilirubin AST ALT Alkaline Phosphatase Ammonia Total Protein Albumin Globulin HCG, Qual Urine Opiates Screen None detected Ur Opiates Confirm TNP Ur Oxycodone Screen Suspect positive A U Oxycod/Oxymor Confirm Pending Urine Methadone Screen None detected Ur Methadone Confirm TNP Ur Barbiturates Screen None detected Ur Barbiturate Confirm TNP Ur Phencyclidine Scrn None detected Urine PCP Confirm TNP Ur Amphetamines Screen None detected U Amphetamines Confirm TNP U Benzodiazepines Scrn Suspect positive A Ur Benzodiazepine, Qnt Pending Urine Cocaine Screen None detected Urine Cocaine Confirm TNP U Cannabinoids Confirm TNP U Marijuana (THC) Screen None detected Ethyl Alcohol mg/dL Ethyl Alcohol g/dL A/P Assessment and plan (1) Cerebral palsy: Status: Acute (2) Migraine: Status: Acute (3) Lethargy: Status: Acute (4) PAD (peripheral artery disease): Status: Chronic (5) Major depressive disorder, recurrent: Status: Chronic Qualifiers: Active/Remission status: currently active Major depression episode severity: moderate Qualified Code(s): F33.1 - Major depressive disorder, recurrent, moderate (6) Type 2 diabetes mellitus without complications: Status: Chronic Narrative A/P Narrative: Assessment and Plans: 1. Lethargic: DDx: Opioid overdose, benzodiazepine overdose, narcolepsy, sleep apnea Observation med surg Hold opioid Hold benzodiazepine Hold sleeping aids such as Zolpidem Hold Lyrica Outpatient sleep study 2. T2DM: HgA1c Hold any oral hypoglycemics Insulin Lispro SSI AC HS Accu Check AC HS Hypoglycemia protocol Diabetic diet 3. Cerebral palsy, history of: Continue to monitor 4. h/o depression: Bupropion Venlafaxine 5. Morbid obesity: Counseled patient on lifestyle modifications including regular exercise and healthy diet in order to lose weight 6. Peripheral arterial disease: Continue aspirin GI ppx: oral PPI DVT ppx: Pradaxa Code status: Full Prognosis: stable Disposition: observation med surg Time Spent With Patient Time: Total time spent is greater than 50% in coordination of care (as documented) at patient's floor/unit and/or counseling patient: Initial: Total time with patient: 55 - 74 minutes QUALITY VTE Deep Vein Thrombosis/Pulmonary Embolism Present on Admission: No
[2022-10-18 09:52] LABS: Thyroid Stimulating Hormone 6.58 uIU/mL (0.27-5.01)
[2022-10-18] MEDS ORDERED: DEXTROSE 31 GM ORAL.SUSP PO PRN (09:58)
[2022-10-18] MEDS ORDERED: IPRATROPIUM/ALBUTEROL 3 ML AMPUL.NEB NEB PRN (09:58)
[2022-10-18] MEDS ORDERED: DEXTROSE 50% 50 ML VIAL IV PRN (09:58)
[2022-10-18] MEDS: VENLAFAXINE 150 MG CAP.XL.24H PO SCH ×2 (11:23→15:06)
[2022-10-18] MEDS: INSULIN LISPRO 1 UNIT/0.01 ML UNIT SQ SCH ×3 (11:26→23:26)
[2022-10-18] MEDS: 0.9 % SODIUM CHLORIDE 10 ML SYRINGE IV SCH ×2 (15:06→20:14)
[2022-10-18] MEDS: ACETAMINOPHEN 325 MG TABLET PO PRN (16:25)
[2022-10-18] MEDS ORDERED: IBUPROFEN 600 MG TABLET PO PRN (19:58)
[2022-10-18] MEDS: DOCUSATE SODIUM 100 MG CAPSULE PO SCH (20:13)
[2022-10-18] MEDS ORDERED: IBUPROFEN 600 MG TABLET PO ONE (20:13)
[2022-10-18] MEDS: DABIGATRAN ETEXILATE MESYLATE 150 MG CAPSULE PO SCH (20:14)
[2022-10-18] MEDS: buPROPion 100 MG TAB.SR.12H PO SCH (20:14)
[2022-10-18] MEDS ORDERED: SENNOSIDES 1 TABLET PO SCH (21:00)
[2022-10-18] MEDS ORDERED: DABIGATRAN ETEXILATE 150 MG PO SCH (21:00)
[2022-10-18] MEDS ORDERED: ATORVASTATIN 40 MG TABLET PO SCH (21:00)
[2022-10-19] MEDS: 0.9 % SODIUM CHLORIDE 10 ML SYRINGE IV SCH (05:27)
[2022-10-19 06:43] LABS: Estimated Average Glucose(eAG) 154 mg/dL
[2022-10-19] MEDS ORDERED: LEVOTHYROXINE 100 MCG TABLET PO SCH (07:30)
[2022-10-19] MEDS ORDERED: PANTOPRAZOLE 40 MG TABLET PO SCH (07:30)
[2022-10-19] MEDS: INSULIN LISPRO 1 UNIT/0.01 ML UNIT SQ SCH ×2 (07:42→11:26)
[2022-10-19] MEDS: DABIGATRAN ETEXILATE MESYLATE 150 MG CAPSULE PO SCH (08:12)
[2022-10-19] MEDS: VENLAFAXINE 150 MG CAP.XL.24H PO SCH (08:12)
[2022-10-19] MEDS: ACETAMINOPHEN 325 MG TABLET PO PRN (08:12)
[2022-10-19] MEDS: DOCUSATE SODIUM 100 MG CAPSULE PO SCH (08:13)
[2022-10-19] MEDS: buPROPion 100 MG TAB.SR.12H PO SCH (08:13)
[2022-10-19] MEDS ORDERED: FUROSEMIDE 20 MG TABLET PO SCH (09:00)
[2022-10-19] MEDS ORDERED: ASPIRIN 81 MG TAB.CHEW PO SCH (09:00)
--- NOTE | 2022-10-19 11:17 | Discharge Summary ---
Discharge Provider Provider IMPORTANT FOLLOW-UP INFORMATION FOR PCP: Patient information: Note initiated : 10/19/22 at 11:14 am Service Date, if different from initiated Date: [] Patient: Shirlene Pradhan 47 y/o F admitted on 10/18/22 for migraine, confusion, unable to walk, weakness. Chief Complaint: [] Date of admission: 10/18/22 02:37 Discharge date: 10/19/22 Primary care physician: Francisco Casey DO Attending physician on admission: Braulio Sears Consults: 10/18/22 Consult to Physician [CONS] Stat Comment: Consulting Provider: Braulio Sears Reason For Exam: Physician to Consult Consult to Physician [CONS] Stat Comment: ams Consulting Provider: Braulio Sears Reason For Exam: Physician to Consult Attending physician on discharge: Braulio Nroman Pufrancesco COURSE Hospital Course Hospital course: Ms. Pradhan is a 47 year old F history of cerebral palsy, depressions, diabetes, peripheral artery disease, migraine headache, obesity, presenting with 1 week history of increased sleepiness. Patient's father said the patient to the ER overnight for her increased sleepiness over the past week. Patient denies such Pain and she stated she is unaware of the having any increased sleepiness oral during my interview with her at the bedside this morning she would frequently close her eyes shelter during our conversations. She denies having history of narcolepsy, sleep apnea, or any other sleep disturbance. In additions, it was reported that she had received Botox injections for her migraine headaches about a week ago. There is no new changes of her medications. Labs obtained in the ED significant for urine drug screen positive for opioids and benzodiazepines. Venous blood gas significant for mildly elevated PCO2 at 54.1. CT of the head without contrast no acute intracranial pathologies. 10/19: Significant finding: Urine drug screen positive for benzodiazepine and opioid; TSH slightly elevated suggesting of hypothyroidism. A.m. cortisol also on the low side. Today this morning is more awake and alert. Which clinical stability. Discharge patient's home with prescriptions of the Synthroid sent to pharmacy. We will stop any opioid and benzodiazepine and Ambien from her home at least. 2 weeks PCP follow-up appointment arranged. All questions answered prior to patient being physically discharged. Discharge diagnosis: Opioid/benzodiazepam overload Time Spent with Patient Time attestation: Total time spent providing and/or coordinating discharge services: Time spent: Less than 30 minutes EXAM Constitutional Vitals: Temp Pulse Resp BP Pulse Ox O2 Del Method O2 Flow Rate 36.3 C 74 18 102/57 93 Room Air 1 10/19/22 07:43 10/19/22 07:43 10/19/22 07:43 10/19/22 07:43 10/19/22 07:43 10/19/22 07:43 10/18/22 07:52 General appearance: cooperative and no acute distress Head Head exam: Present atraumatic and normocephalic Eye Eye exam: Present EOMI and PERRL ENT ENT exam: Present mucous membranes moist, normal exam and normal external ear exam Neck Neck exam: Present normal inspection; Absent lymphadenopathy, tenderness or thyromegaly Respiratory Respiratory exam: Absent accessory muscle use, respiratory distress or wheezes Cardiovascular Cardiovascular exam: Present normal rate and rhythm; Absent JVD GI/Abdominal GI/Abdominal exam: Present normal bowel sounds and soft; Absent organomegaly or tenderness Extremities Exam Extremities exam: Present full ROM, normal capillary refill and normal inspe ction; Absent tenderness Neurological Exam Neurological exam: Present alert, CN II-XII intact and oriented X3; Absent motor sensory deficit Psychiatric Psychiatric exam: Present normal affect and normal mood; Absent anxious or depressed Skin Skin exam: Present dry and intact Discharge Data Data Completed and Pending Labs on day of discharge: Labs from last 24 hours 10/19/22 05:33 Hemoglobin A1c 7.0 H Estim Average Glucose 154 Discharge Plan Patient/Caregiver Discharge Instructions Activity: resume usual activities as tolerated Prescriptions: New levothyroxine 100 mcg Tablet 100 mcg PO QAMAC Qty: 30 2RF Continued aspirin 81 mg tablet,delayed release (DR/EC) 81 mg PO QDAY pantoprazole 40 mg tablet,delayed release (DR/EC) 40 mg PO QDAY Ozempic 0.25 mg or 0.5 mg(2 mg/1.5 mL) pen injector 0.5 mg subcut QWEEK Rx Instructions: today Linzess 290 mcg capsule See Rx Instructions .ROUTE .COMPLEX Qty: 30 2RF Dose Instruction: TAKE 1 CAPSULE BY MOUTH EVERY MORNING FOR CONSTIPATION Rx Instructions: TAKE 1 CAPSULE BY MOUTH EVERY MORNING FOR CONSTIPATION pregabalin 150 mg capsule See Rx Instructions .ROUTE .COMPLEX 30 Days Qty: 120 2RF Rx Instructions: ONE CAP BY MOUTH QAM, ONE CAP BY MOUTH QNOON, TWO CAPS BY MOUTH QHS bupropion HCl 200 mg tablet sustained-release 12 hr 200 mg PO BID Qty: 60 2RF Rx Instructions: Take in AM + 3pm venlafaxine 150 mg capsule,extended release 24hr 150 mg PO .QAM + Q2PM Qty: 60 2RF Rx Instructions: Total daily dose = 300mg dabigatran etexilate [Pradaxa] 150 mg capsule 150 mg PO BID Qty: 60 1RF atorvastatin 40 mg tablet 80 mg PO HS furosemide 20 mg tablet 20 mg PO QDAY Discontinued zolpidem 10 mg tablet See Rx Instructions .ROUTE .COMPLEX Qty: 28 1RF Rx Instructions: 10 mg diazepam 10 mg tablet 10 mg PO QDAY PRN (Reason: muscle spasm and anxiety) 30 Days Qty: 15 1RF Rx Instructions: MUST LAST 30 DAYS No Action oxycodone-acetaminophen 7.5-325 mg tablet 1 tab PO BID Follow Up Plan Follow up with: Francisco Casey DO [Primary Care Provider] - Patient Disposition: Home, Self-Care Prognosis: Fair Rehab Potential: Good I certify that the patient requires SNF services: No Overall status at discharge: patient is back to baseline Discharge Orders: Discharge Order (Routine); Ordered 10/19/22 Ordered By: Braulio OWEN VTE Deep Vein Thrombosis/Pulmonary Embolism Present on Admission: No
== END 2022-10-19 12:30 | disposition home or self-care (01) ==
LOC: MEDSUR 18:00 → ED 18:00 → MEDSUR 10-18 02:55
PROVIDERS: ADMIT Internal Medicine; ATTEND Internal Medicine

== ENCOUNTER 2023-12-18 14:30 | Inpatient (IN) ==
[2023-12-18] MEDS ORDERED: IOPAMIDOL 100 ML BOTTLE IV ONE (14:31)
[2023-12-18] MEDS: ATROPINE SULFATE 1 MG/10 ML SYRINGE IV ONE (14:38)
[2023-12-18] MEDS: 0.9 % SODIUM CHLORIDE 1,000 ML IV ONE ×3 (15:04→20:22)
[2023-12-18 15:07] LABS: Basophils # (Auto) 0.02 K/mcL (0.00-0.30); Basophils % (Auto) 0.3 % (0.0-2.0); Eosinophils # (Auto) 0.08 K/mcL (0.00-0.70); Eosinophils % (Auto) 1.1 % (0.0-7.0); Hematocrit 40.3 % (34.1-44.9); Hemoglobin 13.4 g/dL (11.2-15.7); Lymphocytes # (Auto) 3.13 K/mcL (1.50-4.80); Lymphocytes % (Auto) 42.5 % (15.5-49.0); Mean Cell Volume 97.8 fL (80.0-100.0); Mean Corpuscular HGB Conc 33.3 g/dL (31.0-36.0); Mean Platelet Volume 11.5 fL (8.8-12.5); Monocytes # (Auto) 0.78 K/mcL (0.10-0.90); Monocytes % (Auto) 10.6 % (1.0-12.0); Neutrophils % (Auto) 45.4 % (38.0-78.0); Platelet Count 222 K/mcL (140-440); RBC 4.12 M/mcL (3.59-5.38); WBC 7.4 K/mcL (4.5-11.0)
[2023-12-18 15:38] LABS: ALT/SGPT 16 U/L (<40); AST/SGOT 17 U/L (<32); Albumin 4.1 gm/dL (3.2-5.2); Albumin/Globulin Ratio 1.4 (1.0-2.3); Alkaline Phosphatase 105 U/L (39-117); Bilirubin,Total 0.8 mg/dL (0.1-1.0); Blood Urea Nitrogen 18 mg/dL (6-20); Calcium 9.7 mg/dL (8.6-10.4); Carbon Dioxide 25 mmol/L (22-30); Chloride 100 mmol/L (96-108); Glomerular Filtration Rate 75; Glucose 110 mg/dL (70-105)
[2023-12-18 15:39] LABS: Thyroid Stimulating Hormone 1.61 uIU/mL (0.27-5.01)
[2023-12-18 15:53] LABS: Free T4 (Free Thyroxine) 1.07 ng/dL (0.93-1.70)
[2023-12-18] MEDS: ACETAMINOPHEN 1,000 MG/100 ML BAG IV ONE (16:26)
[2023-12-18 16:48] LABS: Appearance,Urine Slightly Cloudy (Clear); Bilirubin,Urine Negative (Negative); Color,Urine NO COLOR; Culture Indicated,Urine No; Glucose,Urine (UA) Negative (Negative); Ketones,Urine Negative (Negative); Leukocyte Esterase,Urine Negative /uL (Negative); Nitrate,Urine Positive (Negative); Protein,Urine Negative (Negative); Specific Gravity,Urine <= 1.005 (1.000-1.035); Urine Blood Negative ery/mcL (Negative); Urine RBC 0 /hpf (0-3); Urine Squamous Epithelial Cell 20 /hpf (0-4); Urine WBC 2 /hpf (0-4); Urobilinogen,Urine Normal
[2023-12-18] MEDS: cefTRIAXone 1 GM VIAL IV ONE (17:09)
[2023-12-18] MEDS: LACTATED RINGERS 1,000 ML IV SCH (21:00)
[2023-12-18] MEDS: 0.9 % SODIUM CHLORIDE 10 ML SYRINGE IV SCH (22:18)
[2023-12-18 22:49] LABS: Amphetamine Screen,Urine None detected; Barbiturate Screen,Urine None detected; Benzodiazepines Screen,Urine None detected; Cannabinoid Screen,Urine None detected; Cocaine Screen,Urine None detected; Opiate Screen,Urine None detected; Oxycodone, Urine Screen None detected; Phencyclidine Screen,Urine None detected
[2023-12-18 23:21] LABS: Hemoglobin A1C 6.3 % Hgb (4.0-6.0)
[2023-12-18] MEDS: ATROPINE SULFATE 1 MG/ML VIAL IV ONE (23:53)
[2023-12-19] MEDS: ONDANSETRON 4 MG/2 ML VIAL IV PRN (00:46)
[2023-12-19] MEDS: ACETAMINOPHEN 325 MG TABLET PO PRN (01:22)
[2023-12-19 07:46] LABS: Basophils # (Auto) 0.02 K/mcL (0.00-0.30); Basophils % (Auto) 0.4 % (0.0-2.0); Eosinophils # (Auto) 0.06 K/mcL (0.00-0.70); Eosinophils % (Auto) 1.2 % (0.0-7.0); Hematocrit 36.9 % (34.1-44.9); Lymphocytes # (Auto) 2.26 K/mcL (1.50-4.80); Lymphocytes % (Auto) 46.5 % (15.5-49.0); Mean Cell Volume 100.3 fL (80.0-100.0); Mean Corpuscular HGB Conc 32.5 g/dL (31.0-36.0); Mean Platelet Volume 11.2 fL (8.8-12.5); Monocytes # (Auto) 0.54 K/mcL (0.10-0.90); Monocytes % (Auto) 11.1 % (1.0-12.0); Neutrophils % (Auto) 40.6 % (38.0-78.0); Platelet Count 189 K/mcL (140-440); RBC 3.68 M/mcL (3.59-5.38); Red Cell Distribution Width 12.2 % (11.5-14.5); WBC 4.9 K/mcL (4.5-11.0)
[2023-12-19] MEDS ORDERED: [UNRECOGNIZED DRUG - OTHER] SUB-Q SCH (08:00)
[2023-12-19] MEDS ORDERED: SUMATRIPTAN SUCCINATE 6 MG/0.5 ML SUB-Q SCH (08:00)
[2023-12-19] MEDS ORDERED: SUMAtriptan SUCCINATE 6 MG/0.5 ML VIAL SQ PRN (08:02)
[2023-12-19 08:07] LABS: ALT/SGPT 10 U/L (<40); AST/SGOT 13 U/L (<32); Albumin 3.4 gm/dL (3.2-5.2); Albumin/Globulin Ratio 1.4 (1.0-2.3); Alkaline Phosphatase 86 U/L (39-117); Bilirubin,Total 0.3 mg/dL (0.1-1.0); Blood Urea Nitrogen 17 mg/dL (6-20); Calcium 8.9 mg/dL (8.6-10.4); Carbon Dioxide 24 mmol/L (22-30); Chloride 109 mmol/L (96-108); Globulin 2.5 gm/dL (2.2-3.7); Glomerular Filtration Rate 101; Glucose 128 mg/dL (70-105)
[2023-12-19] MEDS ORDERED: ERENUMAB AOOE 140 MG/ML SUB-Q SCH (09:00)
[2023-12-19] MEDS ORDERED: [UNRECOGNIZED DRUG - OTHER] SUB-Q SCH (09:00)
[2023-12-19] MEDS: DESVENLAFAXINE 50 MG PO SCH (09:47)
[2023-12-19] MEDS: APIXABAN 5 MG TABLET PO SCH (09:50)
[2023-12-19] MEDS: GABAPENTIN 300 MG CAPSULE PO SCH (09:50)
[2023-12-19] MEDS ORDERED: ATROPINE SULFATE 1 MG/10 ML SYRINGE IV ONE (10:19)
[2023-12-19] MEDS: ESTRADIOL VAG CREAM 42GM TUBE VAG SCH (10:45)
[2023-12-19] MEDS: GABAPENTIN 100 MG CAPSULE PO SCH (10:46)
[2023-12-19] MEDS: MIDODRINE 5 MG TABLET PO SCH (12:24)
[2023-12-20 06:11] LABS: Basophils # (Auto) 0.03 K/mcL (0.00-0.30); Basophils % (Auto) 0.5 % (0.0-2.0); Eosinophils % (Auto) 1.6 % (0.0-7.0); Hemoglobin 12.3 g/dL (11.2-15.7); Lymphocytes # (Auto) 2.93 K/mcL (1.50-4.80); Lymphocytes % (Auto) 47.6 % (15.5-49.0); Mean Cell Volume 99.2 fL (80.0-100.0); Mean Corpuscular HGB Conc 33.2 g/dL (31.0-36.0); Mean Platelet Volume 11.5 fL (8.8-12.5); Monocytes # (Auto) 0.65 K/mcL (0.10-0.90); Monocytes % (Auto) 10.6 % (1.0-12.0); Neutrophils % (Auto) 39.7 % (38.0-78.0); Platelet Count 181 K/mcL (140-440); RBC 3.73 M/mcL (3.59-5.38); Red Cell Distribution Width 12.3 % (11.5-14.5); WBC 6.2 K/mcL (4.5-11.0)
[2023-12-20 06:40] LABS: ALT/SGPT 16 U/L (<40); AST/SGOT 17 U/L (<32); Albumin 3.6 gm/dL (3.2-5.2); Albumin/Globulin Ratio 1.4 (1.0-2.3); Alkaline Phosphatase 84 U/L (39-117); Bilirubin,Total 0.3 mg/dL (0.1-1.0); Blood Urea Nitrogen 14 mg/dL (6-20); Calcium 9.6 mg/dL (8.6-10.4); Carbon Dioxide 26 mmol/L (22-30); Chloride 106 mmol/L (96-108); Globulin 2.6 gm/dL (2.2-3.7); Glomerular Filtration Rate 86; Glucose 102 mg/dL (70-105)
== END 2023-12-20 14:00 | disposition home or self-care (01) | DRG 316 ==
LOC: ED 14:30 → ICU 20:28
PROVIDERS: ADMIT Student in an Organized Health Care Education/Training Program; ATTEND Student in an Organized Health Care Education/Training Program